=== PATIENT | female | born 1935 | race Caucasian/White ===

== ENCOUNTER → 2017-01-25 | Outpatient (CLI) | payer MEDICARE, OTHER ==
--- NOTE | 2017-01-28 13:10 | MM ---
Reason for exam: screening (asymptomatic). Last mammogram was performed 1 year ago. History: Patient is postmenopausal and has history of other cancer at age 76. Benign excisional biopsy of the left breast, 2000. Physical Findings: A clinical breast exam by your physician is recommended on an annual basis and results should be correlated with mammographic findings. MG 3D Screening Mammo W/Cad Bilateral CC, MLO, and XCCL view(s) were taken. Prior study comparison: January 18, 2016, bilateral MG 3d screening mammo w/cad. January 13, 2015, mammogram, performed at [place]. The breast tissue is heterogeneously dense. This may lower the sensitivity of mammography. No significant changes when compared with prior studies. ASSESSMENT: Benign, BI-RAD 2 RECOMMENDATION: Routine screening mammogram of both breasts in 1 year.
== END | disposition home or self-care (01) ==
LOC: RADMAMWWP 15:52
PROVIDERS: ATTEND Family Medicine
DX: Z12.31 Encounter for screening mammogram for malignant neoplasm of breast (principal)
CPT/HCPCS: 77063; G0202

== ENCOUNTER 2017-03-06 03:53 | Inpatient (IN) | payer MEDICARE, OTHER ==
--- NOTE | 2017-03-06 04:04 | ED ---
General Adult HPI - General Chief complaint: Chest Pain Stated complaint: chest pain Time Seen by Provider: 03/06/17 03:57 Source: EMS, RN notes reviewed, old records reviewed Mode of arrival: EMS Limitations: no limitations - History of Present Illness Initial comments: This is an 81-year-old female ER for evaluation - Related Data Home Medications Medication Instructions Recorded Confirmed A Thru Z Advanced Formula 1 tab PO DAILY 06/18/16 06/18/16 Furosemide [Lasix] 20 mg PO DAILY 06/18/16 06/18/16 Liraglutide [Victoza 3-Sae] 1.8 mg SQ DAILY 06/18/16 06/18/16 Tolterodine ER [Detrol LA] 4 mg PO DAILY 06/18/16 06/18/16 Triamcinolone 0.1% Cream [Kenalog] 1 applicatio TOPICAL BID 06/18/16 06/18/16 Previous Rx's Medication Instructions Recorded Aspirin 325 mg PO DAILY #30 tab 06/21/16 Atorvastatin [Lipitor] 40 mg PO HS #30 tab 06/21/16 Clopidogrel [Plavix] 75 mg PO DAILY #30 tab 06/21/16 Metoprolol Tartrate [Lopressor] 25 mg PO BID #60 tab 06/21/16 Nitroglycerin Sl Tabs [Nitrostat] 0.4 mg SUBLINGUAL Q5M PRN #25 tab 06/21/16 Allergies Allergy/AdvReac Type Severity Reaction Status Date / Time No Known Allergies Allergy Verified 06/18/16 06:23 Review of Systems ROS Statement: Those systems with pertinent positive or pertinent negative responses have been documented in the HPI. ROS Other: All systems not noted in ROS Statement are negative. Past Medical History Past Medical History: Cancer, Diabetes Mellitus, Hypertension Additional Past Medical History / Comment(s): NIDDM type II, pulmonary htn, UTI' s, osteopenia, herron injury as a child, rectal bleed yrs ago, back pain at times, uterine cancer with surgery and radiation 5 yrs ago. History of Any Multi-Drug Resistant Organisms: None Reported Past Surgical History: Appendectomy, Cholecystectomy, Hysterectomy, Joint Replacement Additional Past Surgical History / Comment(s): total hysterectomy with 26 lymph nodes removed, L total knee arthroplasty, L breast bx-benign, colonoscopy-normal , bilateral eyelid surgery, bilateral cataract removal with lens implants. Additional Past Anesthesia/Blood Transfusion Reaction / Comment(s): Pt states seh has received blood in the past without reaction. Past Psychological History: No Psychological Hx Reported Additional Psychological History / Comment(s): Pt resides with her spouse of 56yrs. She has a cane which she uses at times. She drives. Pt states she has depression and it has been increased the past weeks but denies being suicidal, denies any suicidal thoughts. Smoking Status: Never smoker Past Alcohol Use History: None Reported Past Drug Use History: None Reported - Past Family History Mother Family Medical History: No Reported History Additional Family Medical History / Comment(s): Mother was healthy. She at the age of 78yrs. Father Family Medical History: CVA/TIA Additional Family Medical History / Comment(s): Father had heart problems and had TIA's. He also had mental issues. He at the age of 72 yrs. General Exam Limitations: no limitations General appearance: alert, in no apparent distress Head exam: Present: atraumatic, normocephalic, normal inspection Eye exam: Present: normal appearance, PERRL, EOMI. Absent: scleral icterus, conjunctival injection, periorbital swelling ENT exam: Present: normal exam, mucous membranes moist Neck exam: Present: normal inspection. Absent: tenderness, meningismus, lymphadenopathy Respiratory exam: Present: normal lung sounds bilaterally. Absent: respiratory distress, wheezes, rales, rhonchi, stridor Cardiovascular Exam: Present: regular rate, normal rhythm, normal heart sounds. Absent: systolic murmur, diastolic murmur, rubs, gallop, clicks GI/Abdominal exam: Present: soft, normal bowel sounds. Absent: distended, tenderness, guarding, rebound, rigid Extremities exam: Present: normal inspection, full ROM, normal capillary refill. Absent: tenderness, pedal edema, joint swelling, calf tenderness Back exam: Present: normal inspection Neurological exam: Present: alert, oriented X3, CN II-XII intact Psychiatric exam: Present: normal affect, normal mood Skin exam: Present: warm, dry, intact, normal color. Absent: rash Course Vital Signs 03/06/17 03/06/17 03/06/17 03:55 04:40 05:52 Temperature 98.5 F 98.8 F Pulse Rate 88 85 78 Respiratory 16 18 18 Rate Blood Pressure 126/60 125/60 125/62 O2 Sat by Pulse 96 98 98 Oximetry - Reevaluation(s) Reevaluation #1: 03/06/17 06:27 pt w no chest pain EKG Findings - EKG Comments: EKG Findings:: EKG shows normal sinus rhythm rate of 87, FL 182, QRS 130, QTC 486 Medical Decision Making - Medical Decision Making 81 female to the ED co weakness and chest pain, here with chest pain and found to be profoundlt anemic, patient will be admitted for blood transfusion cardiac observation - Lab Data Result diagrams: 03/06/17 04:05 03/06/17 04:05 - Radiology Data Radiology results: report reviewed (CXR is negative for acute disease), image reviewed Critical Care Time Critical Care Time: Yes Total Critical Care Time: 31 Disposition Clinical Impression: Chest pain, Anemia Disposition: ADMITTED IP TO THIS HOSP Condition: Fair
[2017-03-06] MEDS ORDERED: NITROGLYCERIN SL TABS 0.4 MG TAB SUBLINGUAL PRN (04:05)
[2017-03-06] MEDS ORDERED: MORPHINE SULFATE 4 MG/ML SYRINGE IV PRN (04:05)
[2017-03-06] MEDS ORDERED: ASPIRIN 81 MG CHEW PO STA (04:05)
[2017-03-06 04:16] LABS: Anisocytosis Marked; Aty Lym Flag Moderate; CHCM 31.4; HCT 21.3 % (34.0-46.0); HDW 4.72; Hypochromasia Marked; Large Platelets Flag Moderate; MCHC 30.6 g/dL (31.0-37.0); MCV 104.4 fL (80.0-100.0); Macrocytosis Marked; Mean Platelet Volume 12.6; Poikilocytosis Marked; RBC 2.04 m/uL (3.80-5.40); RDW 24.7 % (11.5-15.5); WBC (Perox) 3.35
[2017-03-06 04:24] LABS: INR 1.1 (<1.1); Prothrombin Time 11.4 sec (9.0-12.0)
[2017-03-06 04:29] LABS: HGB 6.5 gm/dL (11.4-16.0)
[2017-03-06 04:30] LABS: ALT 28 U/L (9-52); AST 17 U/L (14-36); Alkaline Phosphatase 65 U/L (38-126); Anion Gap 7 mmol/L; Blood Urea Nitrogen 11 mg/dL (7-17); Calcium 7.4 mg/dL (8.4-10.2); Carbon Dioxide 22 mmol/L (22-30); Chloride 111 mmol/L (98-107); Glucose 103 mg/dL (74-99); Magnesium 1.6 mg/dL (1.6-2.3); Non-African American GFR(MDRD) >60 (>60 ml/min/1.73 sqM); Potassium 3.3 mmol/L (3.5-5.1); Sodium 140 mmol/L (137-145); Total Bilirubin 1.9 mg/dL (0.2-1.3); Total Protein 5.3 g/dL (6.3-8.2)
[2017-03-06] MEDS ORDERED: POTASSIUM BICARB-CITRIC ACID 25 MEQ TABLET.EFF PO STA (04:36)
--- NOTE | 2017-03-06 04:46 | XR ---
EXAM: XR Chest, 2 Views CLINICAL HISTORY: Reason: Chest Pain TECHNIQUE: Frontal and lateral views of the chest. COMPARISON: Chest radiograph on 06/20/2016 FINDINGS: Hardware: Interval placement of a right sided Port-A-Cath terminates in the region of the SVC. Lungs/pleura: Mildly low lung volumes. Prominence of the pulmonary vasculature, increased compared to prior exam on 06/20/2016. No focal consolidation. No pleural effusion or pneumothorax. Heart/mediastinum: Stable mild cardiomegaly. Soft tissues: Unremarkable. Bones: No acute fracture. Degenerative changes of the acromioclavicular joints. IMPRESSION: Mildly low lung volumes with pulmonary vasculature congestion. No significant pleural effusion. Interval placement of a right-sided Port-A-Cath which terminates in the region of the SVC.
[2017-03-06 04:47] LABS: Add Differential Manual Differential
[2017-03-06 04:52] LABS: Creatine Kinase <20 U/L (30-135)
[2017-03-06 04:53] LABS: Total Cells Counted 200
[2017-03-06 04:55] LABS: Manual Review Performed; Polychromasia Present
[2017-03-06 05:03] LABS: Creatine Kinase MB 0.8 ng/mL (0.0-2.4); Troponin I <0.012 ng/mL (0.000-0.034)
[2017-03-06 06:12] LABS: Glucose,Whole Blood 137 mg/dL (75-99)
[2017-03-06 06:21] VITALS: BMI 28.2
[2017-03-06 07:36] LABS: Glucose,Whole Blood 125 mg/dL (75-99)
[2017-03-06 07:44] LABS: Metamyelocytes % 0.5 %; Nucleated Red Blood Cells 5 /100 WBC (0-0)
[2017-03-06 07:46] LABS: Large Platelets Present
--- NOTE | 2017-03-06 09:56 | P.CRDCN ---
History of Present Illness Consult date: 03/06/17 Chief complaint: Chest discomfort History of present illness: This is a pleasant 81-year-old female patient who sees Dr. KM Caban on regular basis with a past medical history significant for coronary artery disease and status post a stenting of the right coronary artery using a drug- eluting stent in May 2016 as well as residual intermediate disease involving the LAD presented to the hospital complaining of chest discomfort. As a matter of fact the patient was brought to the hospital by ambulance. She was in her usual state of health until early this morning when she woke up from sleep complaining of chest discomfort as a pressure across the chest without any radiation to the arm or neck or shoulders and without any associated symptoms. Ambulance was called and the patient was given nitroglycerin with improvement in the symptoms and she was brought to the hospital. The EKG showed sinus rhythm without any significant changes. The patient had only one set of cardiac enzyme came in to be unremarkable. Please note that the patient hemoglobin in the hospital was 6.5. She stated that she has been diagnosed with anemia lately and she has been followed by a lead net software developer at [facility]. She is refusing any blood transfusion at this point. The patient chest discomfort is likely to be angina secondary to CVA anemia. Unfortunately we have to restart the patient back on dual antiplatelet therapy because she underwent a drug-eluting stent less than a year ago. Past Medical History Past Medical History: Cancer, Diabetes Mellitus, Hypertension Additional Past Medical History / Comment(s): NIDDM type II, pulmonary htn, UTI' s, osteopenia, herron injury as a child, rectal bleed yrs ago, back pain at times, uterine cancer with surgery and radiation 5 yrs ago. History of Any Multi-Drug Resistant Organisms: None Reported Past Surgical History: Appendectomy, Cholecystectomy, Hysterectomy, Joint Replacement Additional Past Surgical History / Comment(s): total hysterectomy with 26 lymph nodes removed, L total knee arthroplasty, L breast bx-benign, colonoscopy-normal , bilateral eyelid surgery, bilateral cataract removal with lens implants. Past Anesthesia/Blood Transfusion Reactions: No Reported Reaction Additional Past Anesthesia/Blood Transfusion Reaction / Comment(s): Pt states seh has received blood in the past without reaction. Past Psychological History: No Psychological Hx Reported Additional Psychological History / Comment(s): Pt resides with her spouse of 56yrs. She has a cane which she uses at times. She drives. Pt states she has depression and it has been increased the past weeks but denies being suicidal, denies any suicidal thoughts. Smoking Status: Never smoker Past Alcohol Use History: None Reported Past Drug Use History: None Reported - Past Family History Mother Family Medical History: No Reported History Additional Family Medical History / Comment(s): Mother was healthy. She at the age of 78yrs. Father Family Medical History: CVA/TIA Additional Family Medical History / Comment(s): Father had heart problems and had TIA's. He also had mental issues. He at the age of 72 yrs. Medications and Allergies Home Medications Medication Instructions Recorded Confirmed Type Tolterodine ER [Detrol LA] 4 mg PO DAILY 06/18/16 03/06/17 History Triamcinolone 0.1% Cream [Kenalog] 1 applicatio TOPICAL BID 06/18/16 03/06/17 History amLODIPine BESYLATE/BENAZEPRIL 1 cap PO DAILY 03/06/17 03/06/17 History [Amlodipine-Benazepril 10-20 mg] Allergies Allergy/AdvReac Type Severity Reaction Status Date / Time No Known Allergies Allergy Verified 03/06/17 08:03 Physical Exam Vitals: Vital Signs Temp Pulse Resp BP Pulse Ox 03/06/17 05:52 98.8 F 78 18 125/62 98 03/06/17 04:40 85 18 125/60 98 Intake and Output 03/05/17 03/06/17 03/06/17 22:59 06:59 14:59 Other: Voiding Method Toilet # Voids 1 Weight 74.6 kg - Constitutional General appearance: no acute distress - Respiratory Respiratory: bilateral: CTA - Cardiovascular Rhythm: regular Heart sounds: normal: S1, S2 Abnormal Heart Sounds: systolic murmur Results 03/06/17 04:05 03/06/17 04:05 Current Medications Generic Name Dose Route Start Last Admin Trade Name Freq PRN Reason Stop Dose Admin Amlodipine Besylate 10 mg 03/06/17 10:00 Norvasc PO DAILY [facility] Aspirin 325 mg 03/07/17 09:00 Aspirin PO DAILY [facility] Atorvastatin Calcium 40 mg 03/06/17 21:00 Lipitor PO HS [facility] Clopidogrel Bisulfate 75 mg 03/06/17 10:00 Plavix PO DAILY [facility] Metoprolol Tartrate 25 mg 03/06/17 10:00 Lopressor PO BID [facility] Morphine Sulfate 4 mg 03/06/17 04:05 Morphine Sulfate (Inj) IV Q4HR PRN Chest Pain Nitroglycerin 0.4 mg 03/06/17 04:05 Nitrostat SUBLINGUAL Q5M PRN Chest Pain Triamcinolone Acetonide 1 applic 03/06/17 10:00 Kenalog TOPICAL BID [facility] Intake and Output 03/05/17 03/06/17 03/06/17 22:59 06:59 14:59 Other: Voiding Method Toilet # Voids 1 Weight 74.6 kg Assessment and Plan Plan: Assessment #1 chest discomfort likely to be angina #2 known CAD as described above #3 severe anemia with a hemoglobin of 6.5. Plan #1 restart the patient back on dual antiplatelet therapy #2 blood transfusion if the patient agreed to #3 follow-up with the patient excelled number #4 follow-up with serial cardiac enzymes
[2017-03-06] MEDS: CLOPIDOGREL 75 MG TAB PO SCH (10:24)
[2017-03-06] MEDS: METOPROLOL TARTRATE 25 MG TAB PO SCH ×2 (10:24→21:01)
[2017-03-06] MEDS: TRIAMCINOLONE 0.1% CREAM 80 GM TUBE TOPICAL SCH ×2 (10:25→21:02)
[2017-03-06] MEDS: amLODIPine 10 MG TAB PO SCH (10:25)
[2017-03-06 11:13] LABS: Creatine Kinase 24 U/L (30-135)
[2017-03-06 11:26] LABS: Creatine Kinase MB 0.6 ng/mL (0.0-2.4); Troponin I <0.012 ng/mL (0.000-0.034)
[2017-03-06 12:10] LABS: Glucose,Whole Blood 158 mg/dL (75-99)
[2017-03-06 17:18] LABS: Glucose,Whole Blood 89 mg/dL (75-99)
--- NOTE | 2017-03-06 19:55 | HP ---
DATE OF ADMISSION: 03/06/2017 PRESENTING COMPLAINT: Chest pain. HISTORY OF PRESENTING COMPLAINT: This is a very pleasant 81-year-old patient of Dr. Boyce whose chronic stable medical conditions include diabetes, hypertension, pulmonary hypertension. Patient was resting at night when she developed chest pressure going across, some shortness of breath, radiation to the shoulder. It lasted for a good half an hour. Admitted for the same. Patient also has got a condition, she says, in which her body is not able to make enough red blood cells and she gets a hormone shot every so often; has had blood transfusions x5. Patient was found to have a hemoglobin of 6.5 in the ER, but patient ( ) transfusion. Cardiology was consulted. REVIEW OF SYSTEMS: CONSTITUTIONAL: Tired. HEENT: None. RESPIRATORY: As above. CARDIOVASCULAR: As above. GASTROINTESTINAL: None. GENITOURINARY: None. MUSCULOSKELETAL: None. DERMATOLOGICAL: None. HEMATOLOGICAL: None. LYMPHATIC: None. PSYCHIATRY: None. NEUROLOGICAL: None. PAST MEDICAL HISTORY: 1. Diabetes. 2. Hypertension. 3. Pulmonary hypertension. 4. Uterine cancer treated with surgery and radiation treatment. PAST SURGICAL HISTORY: 1. Appendectomy. 2. Cholecystectomy. 3. Total hysterectomy with 26 lymph nodes removed. 4. Left total knee arthroplasty. 5. Left breast biopsy, benign. 6. Bilateral eyelid surgery. 7. Bilateral cataract removal with lens implants. SOCIAL HISTORY: Patient is . Does drive about. No smoking. No alcohol. FAMILY HISTORY: Reviewed; noncontributory to presentation. HOME MEDICATIONS: 1. Amlodipine/benazepril 10/20 one tablet p.o. daily. 2. Kenalog 0.1% cream topically b.i.d. 3. Detrol LA 4 mg p.o. daily. 4. Nitrostat 0.4 sublingually q.5 p.r.n. 5. Lopressor 25 p.o. b.i.d. 6. Plavix 75 p.o. daily. 7. Lipitor 40 mg at bedtime. 8. Aspirin 325 mg p.o. daily. ALLERGIES: NONE. On examination, temperature 98.4, pulse 82, respiration 16, blood pressure 120/67, pulse ox 98% on room air. GENERAL APPEARANCE: Average build. Lying in bed. Not in distress. EYES: Pupils equal. Conjunctivae pale. HEENT: External appearance of nose and ears normal. Oral cavity normal. NECK: JVD not raised. Mass not palpable. RESPIRATORY: Effort normal. LUNGS: Fair air entry. CARDIOVASCULAR: First and second sounds normal. No edema. ABDOMEN: Soft, nontender. Liver and spleen not palpable. LYMPHATIC: No lymph node palpable in neck or axillae. PSYCHIATRY: Alert and oriented x3. Mood and affect normal. NEUROLOGICAL: Pupils equal. Cranial nerves grossly intact. Power and sensation grossly intact. INVESTIGATIONS: Admission labs show white count 3, hemoglobin 6.5; potassium 3.3. BUN and creatinine are normal. Accu-Cheks are noted: 103, 137, 125. EKG shows right bundle branch block. ASSESSMENT: 1. Unstable angina in a patient with type II hemodynamic mismatch, hemoglobin of 6.5 causing angina at rest/unstable angina. 2. Essential hypertension. 3. Secondary pulmonary hypertension. 4. Chronic anemia with no acute presentation. PLAN: Patient's troponins are negative. Cardiology was consulted. I did speak at length with the patient about the importance of getting some blood transfusion, as this could compromise her situation and may culminate actually in a heart attack. Patient agreed to go ahead and take a unit of blood. Patient's other home medications are reviewed. Will repeat hemoglobin in the morning.
[2017-03-06] MEDS ORDERED: ATORVASTATIN 40 MG TAB PO SCH (21:00)
[2017-03-07 05:09] LABS: Anion Gap 5 mmol/L; Blood Urea Nitrogen 10 mg/dL (7-17); Calcium 7.7 mg/dL (8.4-10.2); Carbon Dioxide 24 mmol/L (22-30); Chloride 110 mmol/L (98-107); Glucose 104 mg/dL (74-99); Magnesium 1.8 mg/dL (1.6-2.3); Non-African American GFR(MDRD) >60 (>60 ml/min/1.73 sqM); Phosphorous 3.6 mg/dL (2.5-4.5); Sodium 139 mmol/L (137-145)
[2017-03-07 05:10] LABS: Anisocytosis Marked; Aty Lym Flag Slight; CH 32.4; CHCM 32.6; Cholesterol <50 mg/dL (<200); HCT 25.1 % (34.0-46.0); HDL Cholesterol 19 mg/dL (40-60); HDW 5.32; HGB 7.9 gm/dL (11.4-16.0); Hypochromasia Marked; Large Platelets Flag Moderate; MCH 32.1 pg (25.0-35.0); MCHC 31.4 g/dL (31.0-37.0); MCV 102.1 fL (80.0-100.0); Macrocytosis Marked; Poikilocytosis Marked; RBC 2.46 m/uL (3.80-5.40); RDW 24.7 % (11.5-15.5); Triglycerides 119 mg/dL (<150)
[2017-03-07 05:19] LABS: Add Differential Manual Differential
[2017-03-07 05:28] LABS: Band Neutrophils % 2.5 %; Metamyelocytes % 1.5 %; Myelocytes % 2.5 %; Nucleated Red Blood Cells 7 /100 WBC (0-0); Total Cells Counted 200; WBC 2.7 k/uL (3.8-10.6)
[2017-03-07 05:29] LABS: Large Platelets Present; Manual Review Performed; Polychromasia Present
[2017-03-07 08:08] VITALS: BP 127/67; RESP 15; TEMP 98.1
[2017-03-07] MEDS ORDERED: ASPIRIN 325 MG TAB PO SCH (09:00)
[2017-03-07] MEDS: METOPROLOL TARTRATE 25 MG TAB PO SCH (09:15)
[2017-03-07] MEDS: CLOPIDOGREL 75 MG TAB PO SCH (09:15)
[2017-03-07] MEDS: amLODIPine 10 MG TAB PO SCH (09:16)
[2017-03-07] MEDS: TRIAMCINOLONE 0.1% CREAM 80 GM TUBE TOPICAL SCH (09:16)
--- NOTE | 2017-03-07 11:42 | P.PN ---
Progress Note - Text This is a pleasant 81-year-old female patient who sees Dr. KM Caban on regular basis with a past medical history significant for coronary artery disease and status post a stenting of the right coronary artery using a drug- eluting stent in May 2016 as well as residual intermediate disease involving the LAD presented to the hospital complaining of chest discomfort. As a matter of fact the patient was brought to the hospital by ambulance. She was in her usual state of health until early this morning when she woke up from sleep complaining of chest discomfort as a pressure across the chest without any radiation to the arm or neck or shoulders and without any associated symptoms. Ambulance was called and the patient was given nitroglycerin with improvement in the symptoms and she was brought to the hospital. The EKG showed sinus rhythm without any significant changes. The patient had only one set of cardiac enzyme came in to be unremarkable. Please note that the patient hemoglobin in the hospital was 6.5. She stated that she has been diagnosed with anemia lately and she has been followed by a marble cleaner at [facility]. The patient received blood with improvement in her symptoms. She is going to be discharged home and she will follow-up with her primary care physician.
[2017-03-07 12:07] VITALS: PULSE 74
--- NOTE | 2017-03-08 10:22 | DS ---
DATE OF ADMISSION: 03/06/2017 DATE OF DISCHARGE: 03/07/2017 FINAL DIAGNOSES: 1. Unstable angina in a patient with the type II hemodynamic mismatch with underlying coronary artery disease. 2. Essential hypertension. 3. Secondary pulmonary hypertension. 4. 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 5. Coronary artery disease, prior history drug-eluting stent in May of 2016 with residual intermittent disease of the left anterior descending artery. CONSULTATION: Cardiology, Dr. Isabel. HOSPITAL COURSE: This patient presented with cardiac-sounding presentation, hemoglobin was 6.5, given a unit of blood, went up to 7.9. Patient is feeling much better. Patient is due to see her traveling construction superintendent. Patient was symptom-free symptom with transfusion. On examination, lungs are clear. CARDIOVASCULAR: First and second sounds are normal. DISCHARGE MEDICATIONS: 1. Detrol LA 4 mg p.o. daily. 2. Kenalog 0.1% cream topically b.i.d. 3. Aspirin 325 p.o. daily. 4. Lipitor 40 mg q.h.s. 5. Plavix 75 p.o. daily. 6. Lopressor 25 p.o. b.i.d. 7. Nitrostat 0.4 sublingual q.5 p.r.n. Follow up with Dr. Boyce on 03/08/2017; follow up with her traveling construction superintendent and her plastic parts designer as soon as possible.
== END 2017-03-07 12:12 | disposition home health service (06) | DRG 815 ==
LOC: EC 03:53 → UNDOADMOB 04:05 → 3OBS 04:05 → 6ICU 04:05
PROVIDERS: ADMIT Hospitalist; ATTEND Hospitalist
PROC: 30233N1 Transfusion of Nonautologous Red Blood Cells into Peripheral Vein, Percutaneous Approach (ICD-10-PCS; principal; 2017-03-06)
DX: D75.89 Other specified diseases of blood and blood-forming organs (principal); I25.110 Atherosclerotic heart disease of native coronary artery with unstable angina pectoris; I27.2 Other secondary pulmonary hypertension; E11.9 Type 2 diabetes mellitus without complications; D63.8 Anemia in other chronic diseases classified elsewhere; I10 Essential (primary) hypertension; F32.9 Major depressive disorder, single episode, unspecified; M85.80 Other specified disorders of bone density and structure, unspecified site; Z79.02 Long term (current) use of antithrombotics/antiplatelets; Z79.82 Long term (current) use of aspirin; Z79.899 Other long term (current) drug therapy; Z85.42 Personal history of malignant neoplasm of other parts of uterus; Z96.652 Presence of left artificial knee joint
CPT/HCPCS: 36415; 71020; 80048; 80053; 80061; 82550; 82553; 83735; 84100; 84484; 85025; 85610; 85730; 86850; 86900; 86901; 86920; 93005; 99291

== ENCOUNTER 2017-04-23 07:05 | Emergency (ER) | payer MEDICARE, OTHER ==
[2017-04-23 07:12] VITALS: RESP 16
[2017-04-23] MEDS ORDERED: SODIUM CHLORIDE 0.9% 1,000 ML IV STA ×2 (07:45)
[2017-04-23] MEDS ORDERED: KETOROLAC 30 MG/ML 1 ML VIAL IVP STA (07:46)
--- NOTE | 2017-04-23 07:50 | ED ---
Weakness HPI - General Chief complaint: Weakness Stated complaint: Pain Time Seen by Provider: 04/23/17 07:05 Source: patient, family, EMS, RN notes reviewed Mode of arrival: EMS Limitations: no limitations - History of Present Illness Initial comments: This is an 81-year-old female with a history of hypertension who is also on Plavix who presents by EMS today because of generalized weakness. She apparently was visiting a chair since Saturday today being Saturday (4 days) who also complains of severe shoulder pain. She states that [place] she states it feels Lasix obesity and her chest at times shoulders. She has a cough fevers chills nausea vomiting sweats no dysuria she does states she feels like the taste water has not been drinking. She does drink Pepsi and alcohol murmurs. She states she's had decreased urine output over collar is not different. She has no focal weakness she does states she hurts all over. She did slide out of bed yesterday. He denies any overt injury from this. MD Complaint: generalized weakness - Related Data Home Medications Medication Instructions Recorded Confirmed Tolterodine ER [Detrol LA] 4 mg PO DAILY 06/18/16 04/23/17 Triamcinolone 0.1% Cream [Kenalog] 1 applicatio TOPICAL BID PRN 06/18/16 Previous Rx's Medication Instructions Recorded Aspirin 325 mg PO DAILY #30 tab 06/21/16 Atorvastatin [Lipitor] 40 mg PO HS #30 tab 06/21/16 Clopidogrel [Plavix] 75 mg PO DAILY #30 tab 06/21/16 Metoprolol Tartrate [Lopressor] 25 mg PO BID #60 tab 06/21/16 Nitroglycerin Sl Tabs [Nitrostat] 0.4 mg SUBLINGUAL Q5M PRN #25 tab 06/21/16 Amoxicillin/Potassium Clav 1 tab PO Q12HR #20 tab 04/23/17 [Augmentin 875-125 Tablet] Allergies Allergy/AdvReac Type Severity Reaction Status Date / Time No Known Allergies Allergy Verified 04/23/17 07:46 Review of Systems ROS Statement: Those systems with pertinent positive or pertinent negative responses have been documented in the HPI. ROS Other: All systems not noted in ROS Statement are negative. Past Medical History Past Medical History: Cancer, Diabetes Mellitus, Hypertension Additional Past Medical History / Comment(s): NIDDM type II, pulmonary htn, UTI' s, osteopenia, herron injury as a child, rectal bleed yrs ago, back pain at times, uterine cancer with surgery and radiation 5 yrs ago. History of Any Multi-Drug Resistant Organisms: None Reported Past Surgical History: Appendectomy, Cholecystectomy, Hysterectomy, Joint Replacement Additional Past Surgical History / Comment(s): total hysterectomy with 26 lymph nodes removed, L total knee arthroplasty, L breast bx-benign, colonoscopy-normal , bilateral eyelid surgery, bilateral cataract removal with lens implants. Past Anesthesia/Blood Transfusion Reactions: No Reported Reaction Additional Past Anesthesia/Blood Transfusion Reaction / Comment(s): Pt states seh has received blood in the past without reaction. Past Psychological History: No Psychological Hx Reported Smoking Status: Never smoker Past Alcohol Use History: None Reported Past Drug Use History: None Reported - Past Family History Mother Family Medical History: No Reported History Additional Family Medical History / Comment(s): Mother was healthy. She at the age of 78yrs. Father Family Medical History: CVA/TIA Additional Family Medical History / Comment(s): Father had heart problems and had TIA's. He also had mental issues. He at the age of 72 yrs. General Exam - General Exam Comments Initial Comments: This is a well-developed well-nourished awake alert oriented x 3 female Limitations: no limitations General appearance: alert, in no apparent distress Head exam: Present: atraumatic, normocephalic, normal inspection Eye exam: Present: normal appearance, PERRL, EOMI. Absent: scleral icterus, conjunctival injection, periorbital swelling ENT exam: Present: mucous membranes dry Neck exam: Present: normal inspection, tenderness (Tenderness palpation of the paraspinous muscles at the bilateral trapezius muscles no spinous process tenderness or step-off or crepitation no meningeal signs). Absent: meningismus , lymphadenopathy Respiratory exam: Present: normal lung sounds bilaterally. Absent: respiratory distress, wheezes, rales, rhonchi, stridor Cardiovascular Exam: Present: regular rate, normal rhythm, normal heart sounds. Absent: systolic murmur, diastolic murmur, rubs, gallop, clicks GI/Abdominal exam: Present: soft, normal bowel sounds. Absent: distended, tenderness, guarding, rebound, rigid Extremities exam: Present: normal inspection, full ROM, normal capillary refill. Absent: tenderness, pedal edema, joint swelling, calf tenderness Back exam: Present: normal inspection Neurological exam: Present: alert, oriented X3, CN II-XII intact Psychiatric exam: Present: normal mood, flat affect Skin exam: Present: warm, dry, intact, normal color. Absent: rash Course Vital Signs 04/23/17 04/23/17 04/23/17 07:09 07:42 08:42 Temperature 100.1 F H Pulse Rate 91 88 88 Respiratory 16 Rate Blood Pressure 129/58 132/58 119/55 O2 Sat by Pulse 94 L 96 94 L Oximetry 04/23/17 04/23/17 09:12 10:36 Temperature 99.1 F Pulse Rate 90 91 Respiratory 16 Rate Blood Pressure 100/62 113/52 O2 Sat by Pulse 95 94 L Oximetry EKG Findings - EKG Results: EKG: interpreted by JC, sinus rhythm (Sinus rhythm rate of 88 AR interval 170 QRS 132 QT since QTC of 14/46 that exodeviation right bundle-branch block no changes seen with compared to EKG dated 03/06/17) Medical Decision Making - Medical Decision Making The patient is feeling much improved at this time and would like to go home and did discuss case with patient family and was office staff members. Visiting nurse will come to see the patient tomorrow brian follow-up with Dr. Boyce. Visual be placed on antibiotics there is evidence of atelectasis on the CAT scan inability to blood cell count is within normal limits there is suspicion of early pneumonitis. Patient is return if any problems. - Lab Data Result diagrams: 04/23/17 08:05 04/23/17 08:05 Lab Results 04/23/17 04/23/17 04/23/17 Range/Units 08:05 08:05 08:05 WBC 3.9 (3.8-10.6) k/uL RBC 2.57 L (3.80-5.40) m/uL Hgb 8.2 L (11.4-16.0) gm/dL Hct 26.5 L (34.0-46.0) % MCV 103.0 H (80.0-100.0) fL MCH 32.0 (25.0-35.0) pg MCHC 31.1 (31.0-37.0) g/dL RDW 20.3 H (11.5-15.5) % Plt Count 102 L (150-450) k/uL Neutrophils % (Manual) 60.5 % Lymphocytes % (Manual) 28.0 % Monocytes % (Manual) 9.0 % Blast Cells % 2.5 Neutrophils # (Manual) 2.4 (1.3-7.7) k/uL Lymphocytes # (Manual) 1.1 (1.0-4.8) k/uL Monocytes # (Manual) 0.4 (0-1.0) k/uL Nucleated RBCs 0 (0-0) /100 WBC Manual Slide Review Performed Large Platelets Present Polychromasia Present Hypochromasia Moderate Poikilocytosis Moderate Anisocytosis Moderate Macrocytosis Marked Stomatocytes Present PT (9.0-12.0) sec INR (<1.1) APTT (22.0-30.0) sec D-Dimer (<0.60) mg/L FEU Sodium 136 L (137-145) mmol/L Potassium 3.5 (3.5-5.1) mmol/L Chloride 103 (98-107) mmol/L Carbon Dioxide 24 (22-30) mmol/L Anion Gap 9 mmol/L BUN 18 H (7-17) mg/dL Creatinine 0.62 (0.52-1.04) mg/dL Est GFR (MDRD) Af Amer >60 (>60 ml/min/1.73 sqM) Est GFR (MDRD) Non-Af >60 (>60 ml/min/1.73 sqM) Glucose 271 H (74-99) mg/dL Plasma Lactic Acid Eddie (0.7-2.0) mmol/L Calcium 8.1 L (8.4-10.2) mg/dL Magnesium 1.7 (1.6-2.3) mg/dL Total Bilirubin 2.5 H (0.2-1.3) mg/dL AST 11 L (14-36) U/L ALT 16 (9-52) U/L Alkaline Phosphatase 102 (38-126) U/L Total Creatine Kinase <20 L (30-135) U/L CK-MB (CK-2) <0.2 (0.0-2.4) ng/mL CK-MB (CK-2) Rel Index Troponin I <0.012 (0.000-0.034) ng/mL NT-Pro-B Natriuret Pep pg/mL Total Protein 5.7 L (6.3-8.2) g/dL Albumin 2.8 L (3.5-5.0) g/dL Urine Color Urine Appearance (Clear) Urine pH (5.0-8.0) Ur Specific [place] (1.001-1.035) Urine Protein (Negative) Urine Glucose (UA) (Negative) Urine Ketones (Negative) Urine Blood (Negative) Urine Nitrite (Negative) Urine Bilirubin (Negative) Urine Urobilinogen (<2.0) mg/dL Ur Leukocyte Esterase (Negative) Urine RBC (0-5) /hpf Urine WBC (0-5) /hpf Urine Mucus (None) /hpf 04/23/17 04/23/17 04/23/17 Range/Units 08:05 08:05 08:05 WBC (3.8-10.6) k/uL RBC (3.80-5.40) m/uL Hgb (11.4-16.0) gm/dL Hct (34.0-46.0) % MCV (80.0-100.0) fL MCH (25.0-35.0) pg MCHC (31.0-37.0) g/dL RDW (11.5-15.5) % Plt Count (150-450) k/uL Neutrophils % (Manual) % Lymphocytes % (Manual) % Monocytes % (Manual) % Blast Cells % Neutrophils # (Manual) (1.3-7.7) k/uL Lymphocytes # (Manual) (1.0-4.8) k/uL Monocytes # (Manual) (0-1.0) k/uL Nucleated RBCs (0-0) /100 WBC Manual Slide Review Large Platelets Polychromasia Hypochromasia Poikilocytosis Anisocytosis Macrocytosis Stomatocytes PT 12.1 H (9.0-12.0) sec INR 1.2 (<1.1) APTT 34.6 H (22.0-30.0) sec D-Dimer 1.42 H (<0.60) mg/L FEU Sodium (137-145) mmol/L Potassium (3.5-5.1) mmol/L Chloride (98-107) mmol/L Carbon Dioxide (22-30) mmol/L Anion Gap mmol/L BUN (7-17) mg/dL Creatinine (0.52-1.04) mg/dL Est GFR (MDRD) Af Amer (>60 ml/min/1.73 sqM) Est GFR (MDRD) Non-Af (>60 ml/min/1.73 sqM) Glucose (74-99) mg/dL Plasma Lactic Acid Eddie 0.8 (0.7-2.0) mmol/L Calcium (8.4-10.2) mg/dL Magnesium (1.6-2.3) mg/dL Total Bilirubin (0.2-1.3) mg/dL AST (14-36) U/L ALT (9-52) U/L Alkaline Phosphatase (38-126) U/L Total Creatine Kinase (30-135) U/L CK-MB (CK-2) (0.0-2.4) ng/mL CK-MB (CK-2) Rel Index Troponin I (0.000-0.034) ng/mL NT-Pro-B Natriuret Pep 929 pg/mL Total Protein (6.3-8.2) g/dL Albumin (3.5-5.0) g/dL Urine Color Urine Appearance (Clear) Urine pH (5.0-8.0) Ur Specific [place] (1.001-1.035) Urine Protein (Negative) Urine Glucose (UA) (Negative) Urine Ketones (Negative) Urine Blood (Negative) Urine Nitrite (Negative) Urine Bilirubin (Negative) Urine Urobilinogen (<2.0) mg/dL Ur Leukocyte Esterase (Negative) Urine RBC (0-5) /hpf Urine WBC (0-5) /hpf Urine Mucus (None) /hpf 04/23/17 Range/Units 09:38 WBC (3.8-10.6) k/uL RBC (3.80-5.40) m/uL Hgb (11.4-16.0) gm/dL Hct (34.0-46.0) % MCV (80.0-100.0) fL MCH (25.0-35.0) pg MCHC (31.0-37.0) g/dL RDW (11.5-15.5) % Plt Count (150-450) k/uL Neutrophils % (Manual) % Lymphocytes % (Manual) % Monocytes % (Manual) % Blast Cells % Neutrophils # (Manual) (1.3-7.7) k/uL Lymphocytes # (Manual) (1.0-4.8) k/uL Monocytes # (Manual) (0-1.0) k/uL Nucleated RBCs (0-0) /100 WBC Manual Slide Review Large Platelets Polychromasia Hypochromasia Poikilocytosis Anisocytosis Macrocytosis Stomatocytes PT (9.0-12.0) sec INR (<1.1) APTT (22.0-30.0) sec D-Dimer (<0.60) mg/L FEU Sodium (137-145) mmol/L Potassium (3.5-5.1) mmol/L Chloride (98-107) mmol/L Carbon Dioxide (22-30) mmol/L Anion Gap mmol/L BUN (7-17) mg/dL Creatinine (0.52-1.04) mg/dL Est GFR (MDRD) Af Amer (>60 ml/min/1.73 sqM) Est GFR (MDRD) Non-Af (>60 ml/min/1.73 sqM) Glucose (74-99) mg/dL Plasma Lactic Acid Eddie (0.7-2.0) mmol/L Calcium (8.4-10.2) mg/dL Magnesium (1.6-2.3) mg/dL Total Bilirubin (0.2-1.3) mg/dL AST (14-36) U/L ALT (9-52) U/L Alkaline Phosphatase (38-126) U/L Total Creatine Kinase (30-135) U/L CK-MB (CK-2) (0.0-2.4) ng/mL CK-MB (CK-2) Rel Index Troponin I (0.000-0.034) ng/mL NT-Pro-B Natriuret Pep pg/mL Total Protein (6.3-8.2) g/dL Albumin (3.5-5.0) g/dL Urine Color Yellow Urine Appearance Cloudy H (Clear) Urine pH 5.5 (5.0-8.0) Ur Specific [place] 1.020 (1.001-1.035) Urine Protein 1+ H (Negative) Urine Glucose (UA) 2+ H (Negative) Urine Ketones Negative (Negative) Urine Blood Trace H (Negative) Urine Nitrite Negative (Negative) Urine Bilirubin Negative (Negative) Urine Urobilinogen 2.0 (<2.0) mg/dL Ur Leukocyte Esterase Negative (Negative) Urine RBC 1 (0-5) /hpf Urine WBC <1 (0-5) /hpf Urine Mucus Rare H (None) /hpf - Radiology Data Radiology results: report reviewed (Review the imaging and reports no acute findings. Her some evidence of atelectasis), image reviewed Disposition Clinical Impression: Pneumonitis, Dehydration fever, Weakness, Chronic anemia Disposition: HOME SELF-CARE Condition: Good Instructions: Pneumonitis (ED), Dehydration (ED), Anemia (ED) Prescriptions: Amoxicillin/Potassium Clav [Augmentin 875-125 Tablet] 1 tab PO Q12HR #20 tab Referrals: Marty Boyce MD [Primary Care Provider] - 1-2 days
--- NOTE | 2017-04-23 08:30 | XR ---
EXAMINATION TYPE: XR chest 2V DATE OF EXAM: 04/23/2017 HISTORY: Weakness. REFERENCE: Previous study dated 03/06/2017. FINDINGS: There is a MediPort in place on the right. Its tip is in the superior vena cava. The heart is mildly enlarged. There is scarring or atelectasis at the left lung base. The lungs are o therwise clear. I cannot exclude a small left effusion. IMPRESSION: 1. CARDIOMEGALY. 2. SCARRING VERSUS ATELECTASIS, LEFT LUNG BASE. 3. I CANNOT EXCLUDE A SMALL LEFT EFFUSION.
[2017-04-23 08:31] LABS: Anisocytosis Moderate; Aty Lym Flag Moderate; CH 32.4; CHCM 31.9; HCT 26.5 % (34.0-46.0); HDW 4.05; HGB 8.2 gm/dL (11.4-16.0); Hypochromasia Moderate; Large Platelets Flag Marked; MCHC 31.1 g/dL (31.0-37.0); Macrocytosis Marked; Mean Platelet Volume 14.2; Poikilocytosis Moderate; RBC 2.57 m/uL (3.80-5.40); RDW 20.3 % (11.5-15.5); WBC 3.9 k/uL (3.8-10.6); WBC (Perox) 4.13
[2017-04-23 08:43] LABS: Creatine Kinase <20 U/L (30-135)
[2017-04-23 08:52] LABS: Add Differential Manual Differential; INR 1.2 (<1.1); Partial Thromboplastin Time 34.6 sec (22.0-30.0); Prothrombin Time 12.1 sec (9.0-12.0)
[2017-04-23 08:56] LABS: ALT 16 U/L (9-52); AST 11 U/L (14-36); Alkaline Phosphatase 102 U/L (38-126); Anion Gap 9 mmol/L; Blood Urea Nitrogen 18 mg/dL (7-17); Calcium 8.1 mg/dL (8.4-10.2); Carbon Dioxide 24 mmol/L (22-30); Chloride 103 mmol/L (98-107); Creatine Kinase MB <0.2 ng/mL (0.0-2.4); Glucose 271 mg/dL (74-99); Magnesium 1.7 mg/dL (1.6-2.3); Non-African American GFR(MDRD) >60 (>60 ml/min/1.73 sqM); Potassium 3.5 mmol/L (3.5-5.1); Sodium 136 mmol/L (137-145); Total Bilirubin 2.5 mg/dL (0.2-1.3); Total Protein 5.7 g/dL (6.3-8.2); Troponin I <0.012 ng/mL (0.000-0.034)
[2017-04-23 08:59] LABS: Blast Cells 2.5; Large Platelets Present; Manual Review Performed; Nucleated Red Blood Cells 0 /100 WBC (0-0); Total Cells Counted 200
[2017-04-23 09:00] LABS: Polychromasia Present; Stomatocytes Present
[2017-04-23] MEDS ORDERED: RX INFO: IV CONTRAST WAS GIVEN 1 EACH MISC MISCELLANE PRN (09:43)
[2017-04-23] MEDS ORDERED: HYDROmorphone 1 MG/ML 1 ML SYRINGE IVP STA (09:59)
[2017-04-23 10:11] LABS: Appearance,Urine Cloudy (Clear); Bilirubin,Urine Negative (Negative); Glucose,Urine (UA) 2+ (Negative); Ketones,Urine Negative (Negative); Leukocyte Esterase,Urine Negative (Negative); Mucus,Urine Rare /hpf; Nitrite,Urine Negative (Negative); PH, Urine 5.5 (5.0-8.0); Particle Count 12862; Protein,Urine 1+ (Negative); RBC,Urine 1 /hpf (0-5); UA Billing (MACRO vs. MICRO) MICRO; WBC,Urine <1 /hpf (0-5)
--- NOTE | 2017-04-23 10:38 | CT ---
EXAMINATION TYPE: CT angio chest DATE OF EXAM: 04/23/2017 10:29 AM COMPARISON: Previous study dated 06/18/2016 HISTORY: Patient complains of bilateral shoulder pain and arm weakness. Rule out PE. Patient denies chest pain or difficulty breathing. CT DLP: 224.2 mGycm Automated exposure control for dose reduction was used. CONTRAST: CTA scan of the thorax is performed with IV Contrast, patient injected with 100 mL of Omnipaque 350, pulmonary embolism protocol. . FINDINGS: There are small, bilateral effusions, greater on the right than the left. There is diffuse interstitial change, unchanged from previous. There is atelectasis or early consolidation at the lung bases, greater on the left than the right. No parenchymal nodule is seen. There is no significant axillary, internal mammary or hilar adenopathy. There is some shotty mediasti nal adenopathy. There is no evidence of pulmonary embolus. The heart is enlarged. The aorta is normal in caliber without evidence of dissection. There is a small hiatal hernia visualized portions of the upper abdomen are otherwise unremarkable. There is hypertrophic spondylosis and spondylosis deformans within the spine. There is a Port-A-Cath in place on the right. Its tip is in the right atrium. IMPRESSION: 1. THIS EXAMINATION IS NEGATIVE FOR PULMONARY EMBOLUS. 2. CARDIOMEGALY. 3. SMALL, BILATERAL EFFUSIONS, GREATER ON THE RIGHT THAN THE LEFT. 3. DIFFUSE INTERSTITIAL CHANGE. 4. CONSOLIDATION VERSUS ATELECTASIS AT THE LUNG BASES, GREATER ON THE LEFT THAN THE RIGHT. 5. DEGENERATIVE CHANGES WITHIN THE SPINE. 6. SMALL HIATAL HERNIA.
[2017-04-23 11:53] VITALS: BP 104/51; PULSE 85; TEMP 97.8
== END 2017-04-23 11:53 | disposition home or self-care (01) ==
LOC: EC 07:05
DX: J18.9 Pneumonia, unspecified organism (principal); R53.1 Weakness; E86.0 Dehydration; D64.9 Anemia, unspecified; Z96.652 Presence of left artificial knee joint; Z79.899 Other long term (current) drug therapy
CPT/HCPCS: 36415; 93005; 85379; 83880; 80053; 82550; 82553; 83605; 83735; 84484; 85025; 85610; 85730; 81001; 87040; 71020; 71275; 99285; 96365; 96375 ×2; 96361 ×3; Q9967; J0696; J1885; J1170

== ENCOUNTER 2017-12-19 16:14 | Emergency (ER) | payer MEDICARE, OTHER ==
[2017-12-19] MEDS ORDERED: SODIUM CHLORIDE 0.9% 1,000 ML IV STA ×2 (16:40)
[2017-12-19] MEDS ORDERED: IPRATROPIUM-ALBUTEROL 3 ML NEB INHALATION STA (16:41)
--- NOTE | 2017-12-19 16:47 | ED ---
Weakness HPI - General Chief complaint: Weakness Stated complaint: Weakness Time Seen by Provider: 12/19/17 16:35 Source: patient, EMS Mode of arrival: EMS Limitations: no limitations - History of Present Illness Initial comments: This 82-year-old white female presents with a complaint of weakness. She states that it has been going on for approximately one month. It is been worse recently. She does have a history of anemia and had a hemoglobin of 6.7 yesterday and received 2 units of blood. She states that she is unsure why she is anemic. She denies any blood in her stool or black tarry stools. She does complain of occasional shortness of breath and states that earlier this month she apparently contracted influenza A as well as influenza B. She has had an occasional cough. She denies any chest pain or abdominal pain or fevers or chills. No other modifying factors. Family later does show up and states that she has not regained her appetite and has not been taking in as much fluids since she has been ill over the past month. She also just got over a urinary tract infection a couple of days ago. They also relate that she has myelodysplastic syndrome affecting her blood counts. - Related Data Home Medications Medication Instructions Recorded Confirmed Aspirin EC [Ecotrin Low Dose] 81 mg PO DAILY 12/19/17 12/19/17 Atorvastatin [Lipitor] 20 mg PO DAILY 12/19/17 12/19/17 Dronabinol [Marinol] 2.5 mg PO DAILY 12/19/17 12/19/17 Sertraline [Zoloft] 150 mg PO DAILY 12/19/17 12/19/17 metFORMIN HCL [Glucophage] 500 mg PO BID 12/19/17 12/19/17 Previous Rx's Medication Instructions Recorded Clopidogrel [Plavix] 75 mg PO DAILY #30 tab 06/21/16 Metoprolol Tartrate [Lopressor] 25 mg PO BID #60 tab 06/21/16 Nitroglycerin Sl Tabs [Nitrostat] 0.4 mg SUBLINGUAL Q5M PRN #25 tab 06/21/16 Allergies Allergy/AdvReac Type Severity Reaction Status Date / Time No Known Allergies Allergy Verified 12/19/17 16:27 Review of Systems ROS Statement: Those systems with pertinent positive or pertinent negative responses have been documented in the HPI. ROS Other: All systems not noted in ROS Statement are negative. Past Medical History Past Medical History: Cancer, Diabetes Mellitus, Hypertension Additional Past Medical History / Comment(s): NIDDM type II, pulmonary htn, UTI' s, osteopenia, herron injury as a child, rectal bleed yrs ago, back pain at times, uterine cancer with surgery and radiation 5 yrs ago. History of Any Multi-Drug Resistant Organisms: None Reported Past Surgical History: Appendectomy, Cholecystectomy, Hysterectomy, Joint Replacement Additional Past Surgical History / Comment(s): total hysterectomy with 26 lymph nodes removed, L total knee arthroplasty, L breast bx-benign, colonoscopy-normal , bilateral eyelid surgery, bilateral cataract removal with lens implants. Past Anesthesia/Blood Transfusion Reactions: No Reported Reaction Additional Past Anesthesia/Blood Transfusion Reaction / Comment(s): Pt states seh has received blood in the past without reaction. Past Psychological History: No Psychological Hx Reported Smoking Status: Never smoker Past Alcohol Use History: None Reported Past Drug Use History: None Reported - Past Family History Mother Family Medical History: No Reported History Additional Family Medical History / Comment(s): Mother was healthy. She at the age of 78yrs. Father Family Medical History: CVA/TIA Additional Family Medical History / Comment(s): Father had heart problems and had TIA's. He also had mental issues. He at the age of 72 yrs. General Exam - General Exam Comments Initial Comments: GENERAL: The patient is well nourished and well hydrated. VITAL SIGNS: Heart rate, blood pressure, respiratory rate reviewed as recorded in nurse's notes. EYES: Pupils are round and reactive. Extraocular movements are intact. No conjunctival / lid redness or swelling. ENT: No external evidence of injury, swelling, or ecchymosis. Airway is patent. Throat is clear. NECK: Nontender. No swelling or evidence of injury. No subcutaneous emphysema. Trachea is midline. No thyroid mass. HEART: Regular rate and rhythm. Good peripheral pulses. LUNGS/CHEST: Breath sounds clear and equal bilaterally. No rales, rhonchi, or wheezes. No ecchymosis, subcutaneous emphysema, or tenderness. ABDOMEN: Abdomen soft without tenderness. No palpable masses or organomegaly. No peritoneal signs. No abdominal wall swelling or ecchymosis. EXTREMITIES: No extremity tenderness. Normal muscle tone and function. No thoracolumbar tenderness. NEUROLOGIC: Sensation is grossly intact. Cranial nerve exam reveals face is symmetrical, tongue is midline, speech is clear. SKIN: No abrasions or ecchymosis is noted. No induration or masses noted. Slightly pale appearing. PSYCHIATRIC: Alert and oriented. Appropriate behavior and judgment. Limitations: no limitations Course Vital Signs 12/19/17 12/19/17 12/19/17 16:16 16:40 17:16 Temperature 98.1 F Pulse Rate 102 H 100 Respiratory 16 20 Rate Blood Pressure 100/56 O2 Sat by Pulse 97 Oximetry 12/19/17 12/19/17 12/19/17 17:22 17:56 18:55 Temperature 97.6 F Pulse Rate 100 101 H 97 Respiratory 20 20 Rate Blood Pressure 90/50 101/55 O2 Sat by Pulse 97 97 Oximetry Medical Decision Making - Medical Decision Making The patient was seen and examined. All diagnostics were reviewed. The patient had an EKG done which shows a normal sinus rhythm at a rate of 98 with a right bundle-branch block. There is right bundle-branch block associated ST-T wave changes primarily in the anteroseptal leads. The CT intervals 134, QRS duration is 128, and the QTC intervals 482. The chest x-ray did not show any acute processes. The laboratory does show an anemia with a hemoglobin of 8.1 but this is improved from 6.7 yesterday. She has a mild leukocytosis, mild renal insufficiency and significant thrombocytopenia. Her CO2 is decreased consistent with dehydration. There is no urinary infection. She is hydrated and she feels much improved on recheck. It is felt as though she would benefit from admission to the hospital but the patient and daughter would like her to be discharged home. She states that she feels well enough to be discharged home. She does have people at home to help her as well. Proper hydration is discussed in detail. They are informed of laboratory findings that she should have her late was rechecked early this next week. He should inform their oncologist/household appliances salesperson of the results as well. She leaves in no identifiable distress. - Lab Data Result diagrams: 12/19/17 16:30 12/19/17 16:30 Lab Results 12/19/17 12/19/17 12/19/17 Range/Units 16:30 16:30 16:30 WBC 13.6 H (3.8-10.6) k/uL RBC 2.69 L (3.80-5.40) m/uL Hgb 8.1 L (11.4-16.0) gm/dL Hct 25.9 L (34.0-46.0) % MCV 96.0 (80.0-100.0) fL MCH 30.2 (25.0-35.0) pg MCHC 31.4 (31.0-37.0) g/dL RDW 18.1 H (11.5-15.5) % Plt Count 41 L* (150-450) k/uL Neutrophils % (Manual) 59 % Lymphocytes % (Manual) 23 % Monocytes % (Manual) 12 % Eosinophils % (Manual) 1 % Metamyelocytes % 3 % Promyelocytes % 2 % Blast Cells % 1 % Neutrophils # (Manual) 8.02 H (1.3-7.7) k/uL Lymphocytes # (Manual) 3.13 (1.0-4.8) k/uL Monocytes # (Manual) 1.63 H (0-1.0) k/uL Eosinophils # (Manual) 0.14 (0-0.7) k/uL Metamyelocytes # (Man) 0.41 H (0) k/uL Promyelocytes # (Man) 0.27 H (0) k/uL Blast Cells # (Man) 0.14 H (0) k/uL Nucleated RBCs 0 (0-0) /100 WBC Polychromasia Present Hypochromasia Moderate Poikilocytosis Moderate Anisocytosis Slight Macrocytosis Slight PT (9.0-12.0) sec INR (<1.2) APTT (22.0-30.0) sec Sodium 135 L (137-145) mmol/L Potassium 4.7 (3.5-5.1) mmol/L Chloride 107 (98-107) mmol/L Carbon Dioxide 20 L (22-30) mmol/L Anion Gap 8 mmol/L BUN 34 H (7-17) mg/dL Creatinine 1.09 H (0.52-1.04) mg/dL Est GFR (MDRD) Af Amer 58 (>60 ml/min/1.73 sqM) Est GFR (MDRD) Non-Af 48 (>60 ml/min/1.73 sqM) Glucose 181 H (74-99) mg/dL Plasma Lactic Acid Eddie (0.7-2.0) mmol/L Calcium 7.9 L (8.4-10.2) mg/dL Phosphorus 3.6 (2.5-4.5) mg/dL Magnesium 1.6 (1.6-2.3) mg/dL Total Bilirubin 0.8 (0.2-1.3) mg/dL AST 34 (14-36) U/L ALT 28 (9-52) U/L Alkaline Phosphatase 148 H (38-126) U/L Total Creatine Kinase <20 L (30-135) U/L CK-MB (CK-2) 0.4 (0.0-2.4) ng/mL CK-MB (CK-2) Rel Index Troponin I <0.012 (0.000-0.034) ng/mL NT-Pro-B Natriuret Pep pg/mL Total Protein 5.2 L (6.3-8.2) g/dL Albumin 2.3 L (3.5-5.0) g/dL Urine Color Urine Appearance (Clear) Urine pH (5.0-8.0) Ur Specific Marshall (1.001-1.035) Urine Protein (Negative) Urine Glucose (UA) (Negative) Urine Ketones (Negative) Urine Blood (Negative) Urine Nitrite (Negative) Urine Bilirubin (Negative) Urine Urobilinogen (<2.0) mg/dL Ur Leukocyte Esterase (Negative) Urine RBC (0-5) /hpf Urine WBC (0-5) /hpf Ur Squamous Epith Cells (0-4) /hpf Blood Type Blood Type Recheck Antibody Screen Spec Expiration Date 12/19/17 12/19/17 12/19/17 Range/Units 16:30 16:30 16:30 WBC (3.8-10.6) k/uL RBC (3.80-5.40) m/uL Hgb (11.4-16.0) gm/dL Hct (34.0-46.0) % MCV (80.0-100.0) fL MCH (25.0-35.0) pg MCHC (31.0-37.0) g/dL RDW (11.5-15.5) % Plt Count (150-450) k/uL Neutrophils % (Manual) % Lymphocytes % (Manual) % Monocytes % (Manual) % Eosinophils % (Manual) % Metamyelocytes % % Promyelocytes % % Blast Cells % % Neutrophils # (Manual) (1.3-7.7) k/uL Lymphocytes # (Manual) (1.0-4.8) k/uL Monocytes # (Manual) (0-1.0) k/uL Eosinophils # (Manual) (0-0.7) k/uL Metamyelocytes # (Man) (0) k/uL Promyelocytes # (Man) (0) k/uL Blast Cells # (Man) (0) k/uL Nucleated RBCs (0-0) /100 WBC Polychromasia Hypochromasia Poikilocytosis Anisocytosis Macrocytosis PT 12.6 H (9.0-12.0) sec INR 1.3 H (<1.2) APTT 40.3 H (22.0-30.0) sec Sodium (137-145) mmol/L Potassium (3.5-5.1) mmol/L Chloride (98-107) mmol/L Carbon Dioxide (22-30) mmol/L Anion Gap mmol/L BUN (7-17) mg/dL Creatinine (0.52-1.04) mg/dL Est GFR (MDRD) Af Amer (>60 ml/min/1.73 sqM) Est GFR (MDRD) Non-Af (>60 ml/min/1.73 sqM) Glucose (74-99) mg/dL Plasma Lactic Acid Eddie 1.5 (0.7-2.0) mmol/L Calcium (8.4-10.2) mg/dL Phosphorus (2.5-4.5) mg/dL Magnesium (1.6-2.3) mg/dL Total Bilirubin (0.2-1.3) mg/dL AST (14-36) U/L ALT (9-52) U/L Alkaline Phosphatase (38-126) U/L Total Creatine Kinase (30-135) U/L CK-MB (CK-2) (0.0-2.4) ng/mL CK-MB (CK-2) Rel Index Troponin I (0.000-0.034) ng/mL NT-Pro-B Natriuret Pep 5680 pg/mL Total Protein (6.3-8.2) g/dL Albumin (3.5-5.0) g/dL Urine Color Urine Appearance (Clear) Urine pH (5.0-8.0) Ur Specific Marshall (1.001-1.035) Urine Protein (Negative) Urine Glucose (UA) (Negative) Urine Ketones (Negative) Urine Blood (Negative) Urine Nitrite (Negative) Urine Bilirubin (Negative) Urine Urobilinogen (<2.0) mg/dL Ur Leukocyte Esterase (Negative) Urine RBC (0-5) /hpf Urine WBC (0-5) /hpf Ur Squamous Epith Cells (0-4) /hpf Blood Type Blood Type Recheck Antibody Screen Spec Expiration Date 12/19/17 12/19/17 Range/Units 16:30 18:55 WBC (3.8-10.6) k/uL RBC (3.80-5.40) m/uL Hgb (11.4-16.0) gm/dL Hct (34.0-46.0) % MCV (80.0-100.0) fL MCH (25.0-35.0) pg MCHC (31.0-37.0) g/dL RDW (11.5-15.5) % Plt Count (150-450) k/uL Neutrophils % (Manual) % Lymphocytes % (Manual) % Monocytes % (Manual) % Eosinophils % (Manual) % Metamyelocytes % % Promyelocytes % % Blast Cells % % Neutrophils # (Manual) (1.3-7.7) k/uL Lymphocytes # (Manual) (1.0-4.8) k/uL Monocytes # (Manual) (0-1.0) k/uL Eosinophils # (Manual) (0-0.7) k/uL Metamyelocytes # (Man) (0) k/uL Promyelocytes # (Man) (0) k/uL Blast Cells # (Man) (0) k/uL Nucleated RBCs (0-0) /100 WBC Polychromasia Hypochromasia Poikilocytosis Anisocytosis Macrocytosis PT (9.0-12.0) sec INR (<1.2) APTT (22.0-30.0) sec Sodium (137-145) mmol/L Potassium (3.5-5.1) mmol/L Chloride (98-107) mmol/L Carbon Dioxide (22-30) mmol/L Anion Gap mmol/L BUN (7-17) mg/dL Creatinine (0.52-1.04) mg/dL Est GFR (MDRD) Af Amer (>60 ml/min/1.73 sqM) Est GFR (MDRD) Non-Af (>60 ml/min/1.73 sqM) Glucose (74-99) mg/dL Plasma Lactic Acid Eddie (0.7-2.0) mmol/L Calcium (8.4-10.2) mg/dL Phosphorus (2.5-4.5) mg/dL Magnesium (1.6-2.3) mg/dL Total Bilirubin (0.2-1.3) mg/dL AST (14-36) U/L ALT (9-52) U/L Alkaline Phosphatase (38-126) U/L Total Creatine Kinase (30-135) U/L CK-MB (CK-2) (0.0-2.4) ng/mL CK-MB (CK-2) Rel Index Troponin I (0.000-0.034) ng/mL NT-Pro-B Natriuret Pep pg/mL Total Protein (6.3-8.2) g/dL Albumin (3.5-5.0) g/dL Urine Color Yellow Urine Appearance Cloudy H (Clear) Urine pH 5.5 (5.0-8.0) Ur Specific Marshall 1.020 (1.001-1.035) Urine Protein 1+ H (Negative) Urine Glucose (UA) Negative (Negative) Urine Ketones Negative (Negative) Urine Blood Moderate H (Negative) Urine Nitrite Negative (Negative) Urine Bilirubin Negative (Negative) Urine Urobilinogen <2.0 (<2.0) mg/dL Ur Leukocyte Esterase Moderate H (Negative) Urine RBC <1 (0-5) /hpf Urine WBC <1 (0-5) /hpf Ur Squamous Epith Cells <1 (0-4) /hpf Blood Type O Negative Blood Type Recheck No Antibody Screen NEGATIVE Spec Expiration Date 12/22/2017 - 2329 Disposition Clinical Impression: Dehydration, Weakness, Thrombocytopenia, Anemia, Myelodysplastic syndrome, Renal insufficiency, Dyspnea Disposition: HOME SELF-CARE Condition: Fair Instructions: Dehydration (ED), Weakness (ED), Thrombocytopenia (ED), Anemia ( ED) Referrals: Marty Boyce MD [Primary Care Provider] - 1-2 days Time of Disposition: 19:35
[2017-12-19 17:12] LABS: Anisocytosis Slight; HCT 25.9 % (34.0-46.0); HGB 8.1 gm/dL (11.4-16.0); Hypochromasia Moderate; MCH 30.2 pg (25.0-35.0); MCHC 31.4 g/dL (31.0-37.0); Macrocytosis Slight; Mean Platelet Volume 15.6; Poikilocytosis Moderate; RBC 2.69 m/uL (3.80-5.40); RDW 18.1 % (11.5-15.5); WBC 13.6 k/uL (3.8-10.6)
[2017-12-19 17:16] LABS: INR 1.3 (<1.2); Partial Thromboplastin Time 40.3 sec (22.0-30.0); Prothrombin Time 12.6 sec (9.0-12.0)
--- NOTE | 2017-12-19 17:16 | XR ---
EXAMINATION: XR chest 2V DATE AND TIME: 12/19/2017 5:07 PM ORDERING PROVIDER: Mitchell Alvarez DO CLINICAL INDICATION: Weakness dehydration, recent UTI TECHNIQUE: PA and lateral COMPARISON: 04/23/2017 DESCRIPTION: Right IJ Port-A-Cath tip superimposed over the mid SVC. EKG leads noted. The lungs are clear and well-expanded. The pleural spaces are negative. The cardiac silhouette is not enlarged. The skeletal structures are intact without focal findings. The soft tissues are unremarkable. IMPRESSION: NO ACUTE PROCESS.
[2017-12-19 17:28] LABS: Creatine Kinase <20 U/L (30-135)
[2017-12-19 17:35] LABS: Albumin 2.3 g/dL (3.5-5.0); Calcium 7.9 mg/dL (8.4-10.2); Magnesium 1.6 mg/dL (1.6-2.3); Phosphorus 3.6 mg/dL (2.5-4.5); Potassium 4.7 mmol/L (3.5-5.1); Total Bilirubin 0.8 mg/dL (0.2-1.3); Total Protein 5.2 g/dL (6.3-8.2)
[2017-12-19 17:41] LABS: Creatine Kinase MB 0.4 ng/mL (0.0-2.4); Troponin I <0.012 ng/mL (0.000-0.034)
[2017-12-19 17:43] LABS: Platelet Count 41 k/uL (150-450)
[2017-12-19 17:45] LABS: Blast Cells # (M) 0.14 k/uL (0); Eosinophils # (M) 0.14 k/uL (0-0.7); Lymphocytes # (M) 3.13 k/uL (1.0-4.8); Metamyelocytes # (M) 0.41 k/uL (0); Metamyelocytes % 3 %; Monocytes # (M) 1.63 k/uL (0-1.0); Neutrophils # (M) 8.02 k/uL (1.3-7.7); Neutrophils % (M) 59 %; Nucleated Red Blood Cells 0 /100 WBC (0-0); Polychromasia Present; Promyelocytes # (M) 0.27 k/uL (0); Promyelocytes % 2 %; Total Cells Counted 200
[2017-12-19 19:03] LABS: Appearance,Urine Cloudy (Clear); Bilirubin,Urine Negative (Negative); Blood,Urine Moderate (Negative); Color,Urine Yellow; Glucose,Urine (UA) Negative (Negative); Ketones,Urine Negative (Negative); Leukocyte Esterase,Urine Moderate (Negative); Nitrite,Urine Negative (Negative); PH, Urine 5.5 (5.0-8.0); Protein,Urine 1+ (Negative); RBC,Urine <1 /hpf (0-5); Squamous Epithelial Cell,Urine <1 /hpf (0-4); Urobilinogen,Urine <2.0 mg/dL (<2.0); WBC,Urine <1 /hpf (0-5)
[2017-12-19 20:00] VITALS: BP 107/61; PULSE 96; RESP 18; TEMP 100.1
== END 2017-12-19 19:59 | disposition home or self-care (01) ==
LOC: EC 16:14
DX: D46.9 Myelodysplastic syndrome, unspecified (principal); D64.9 Anemia, unspecified; D69.6 Thrombocytopenia, unspecified; E86.0 Dehydration; N28.9 Disorder of kidney and ureter, unspecified; I45.10 Unspecified right bundle-branch block; D72.829 Elevated white blood cell count, unspecified; R05 Cough; I10 Essential (primary) hypertension; E11.9 Type 2 diabetes mellitus without complications; Z79.82 Long term (current) use of aspirin; Z79.84 Long term (current) use of oral hypoglycemic drugs; Z79.899 Other long term (current) drug therapy; Z85.42 Personal history of malignant neoplasm of other parts of uterus; Z92.3 Personal history of irradiation; Z90.710 Acquired absence of both cervix and uterus
CPT/HCPCS: 36415; 71046; 80053; 81001; 82550; 82553; 83605; 83735; 83880; 84100; 84484; 85025; 85610; 85730; 86850; 86900; 86901; 87040; 93005; 94640; 99285

== ENCOUNTER 2017-12-30 10:50 | Inpatient (IN) | payer MEDICARE, OTHER ==
[2017-12-30] MEDS ORDERED: SODIUM CHLORIDE 0.9% 500 ML IV STA (11:10)
[2017-12-30] MEDS ORDERED: ONDANSETRON 4 MG/2 ML VIAL IVP STA (11:10)
[2017-12-30] MEDS ORDERED: PANTOPRAZOLE 40 MG/10 ML VIAL IVP STA (11:10)
[2017-12-30] MEDS ORDERED: SODIUM CHLORIDE 0.9% 1,000 ML IV STA (11:10)
[2017-12-30 11:46] LABS: Albumin 2.3 g/dL (3.5-5.0); Calcium 7.3 mg/dL (8.4-10.2); Phosphorus 5.5 mg/dL (2.5-4.5); Potassium 5.1 mmol/L (3.5-5.1); Total Bilirubin 0.7 mg/dL (0.2-1.3); Total Protein 4.9 g/dL (6.3-8.2)
[2017-12-30 11:53] LABS: Anisocytosis Slight; HCT 21.1 % (34.0-46.0); Hypochromasia Marked; MCH 29.4 pg (25.0-35.0); MCHC 29.8 g/dL (31.0-37.0); MCV 98.6 fL (80.0-100.0); Macrocytosis Slight; Mean Platelet Volume 15.2; Poikilocytosis Slight; RBC 2.14 m/uL (3.80-5.40); RDW 17.2 % (11.5-15.5)
[2017-12-30 11:57] LABS: INR 1.4 (<1.2); Partial Thromboplastin Time 33.5 sec (22.0-30.0); Prothrombin Time 13.3 sec (9.0-12.0)
[2017-12-30 11:59] LABS: Creatine Kinase <20 U/L (30-135)
--- NOTE | 2017-12-30 12:00 | XR ---
EXAMINATION TYPE: XR chest 2V DATE OF EXAM: 12/30/2017 COMPARISON: Chest x-ray December 19, 2016. CTA chest April 23, 2017. HISTORY: Weakness and weight loss TECHNIQUE: Frontal and lateral views of the chest are obtained. FINDINGS: There is stable right internal jugular Mediport catheter. There is no focal air space opac ity, pleural effusion, or pneumothorax seen. The cardiac silhouette size is stable and mildly enlarg ed with atherosclerotic aorta. Underlying scoliosis with multilevel spurring and spine is redemonstra merly. There is partial visualization of known splenomegaly. IMPRESSION: Cardiomegaly without suspicious acute pulmonary process.
[2017-12-30 12:06] LABS: HGB 6.3 gm/dL (11.4-16.0)
--- NOTE | 2017-12-30 12:09 | ED ---
General Adult HPI - General Chief complaint: Nausea/Vomiting/Diarrhea Stated complaint: NVD/Weakness Time Seen by Provider: 12/30/17 11:09 Source: patient, EMS, RN notes reviewed, old records reviewed Mode of arrival: EMS - History of Present Illness Initial comments: This is an 82-year-old female the ER for evaluation, patient is poor historian. Patient history is obtained from chart, EMS. Patient's brought in for nausea and vomiting, weakness. This is been for 3 days. No significant improvement. No episodes of syncope, no diarrhea. - Related Data Home Medications Medication Instructions Recorded Confirmed Atorvastatin [Lipitor] 20 mg PO DAILY 12/19/17 12/30/17 Dronabinol [Marinol] 2.5 mg PO AC-TID 12/19/17 12/30/17 Sertraline [Zoloft] 200 mg PO DAILY 12/19/17 12/30/17 metFORMIN HCL [Glucophage] 500 mg PO AC-BRKFST 12/19/17 12/30/17 Cranberry 2500mg 1 tab PO SUTUTHSA 12/30/17 12/30/17 Iron 100mg 100 mg PO DAILY 12/30/17 12/30/17 Sulfamethox-Tmp 800-160Mg [Bactrim 1 tab PO MOWEFR 12/30/17 12/30/17 DS 800-160 mg] Previous Rx's Medication Instructions Recorded Clopidogrel [Plavix] 75 mg PO DAILY #30 tab 06/21/16 Metoprolol Tartrate [Lopressor] 25 mg PO BID #60 tab 06/21/16 Nitroglycerin Sl Tabs [Nitrostat] 0.4 mg SUBLINGUAL Q5M PRN #25 tab 06/21/16 Allergies Allergy/AdvReac Type Severity Reaction Status Date / Time No Known Allergies Allergy Verified 12/30/17 11:27 Review of Systems ROS Statement: Those systems with pertinent positive or pertinent negative responses have been documented in the HPI. ROS Other: All systems not noted in ROS Statement are negative. Past Medical History Past Medical History: Cancer, Diabetes Mellitus, Hypertension Additional Past Medical History / Comment(s): NIDDM type II, pulmonary htn, UTI' s, osteopenia, herron injury as a child, rectal bleed yrs ago, back pain at times, uterine cancer with surgery and radiation 5 yrs ago. History of Any Multi-Drug Resistant Organisms: None Reported Past Surgical History: Appendectomy, Cholecystectomy, Hysterectomy, Joint Replacement Additional Past Surgical History / Comment(s): total hysterectomy with 26 lymph nodes removed, L total knee arthroplasty, L breast bx-benign, colonoscopy-normal , bilateral eyelid surgery, bilateral cataract removal with lens implants. Past Anesthesia/Blood Transfusion Reactions: No Reported Reaction Additional Past Anesthesia/Blood Transfusion Reaction / Comment(s): Pt states seh has received blood in the past without reaction. Past Psychological History: No Psychological Hx Reported Smoking Status: Never smoker Past Alcohol Use History: None Reported Past Drug Use History: None Reported - Past Family History Mother Family Medical History: No Reported History Additional Family Medical History / Comment(s): Mother was healthy. She at the age of 78yrs. Father Family Medical History: CVA/TIA Additional Family Medical History / Comment(s): Father had heart problems and had TIA's. He also had mental issues. He at the age of 72 yrs. General Exam General appearance: alert, in distress, cachectic Head exam: Present: atraumatic, normocephalic, normal inspection Eye exam: Present: normal appearance, PERRL, EOMI. Absent: scleral icterus, conjunctival injection, periorbital swelling ENT exam: Present: normal exam, mucous membranes moist Neck exam: Present: normal inspection. Absent: tenderness, meningismus, lymphadenopathy Respiratory exam: Present: normal lung sounds bilaterally. Absent: respiratory distress, wheezes, rales, rhonchi, stridor Cardiovascular Exam: Present: regular rate, normal rhythm, normal heart sounds. Absent: systolic murmur, diastolic murmur, rubs, gallop, clicks GI/Abdominal exam: Present: soft, normal bowel sounds. Absent: distended, tenderness, guarding, rebound, rigid Extremities exam: Present: normal inspection, full ROM, normal capillary refill. Absent: tenderness, pedal edema, joint swelling, calf tenderness Back exam: Present: normal inspection Neurological exam: Present: alert, oriented X3, CN II-XII intact Psychiatric exam: Present: normal affect, normal mood Skin exam: Present: warm, dry, intact, normal color. Absent: rash Course Vital Signs 12/30/17 12/30/17 10:55 11:30 Temperature 98.5 F Pulse Rate 89 89 Respiratory 18 18 Rate Blood Pressure 131/60 120/68 O2 Sat by Pulse 100 100 Oximetry - Reevaluation(s) Reevaluation #1: 12/30/17 12:18 Patient is without any current active vomiting, she is asking for something to drink EKG Findings - EKG Comments: EKG Findings:: EKG shows sinus rhythm rate of 80, MT 164, QRS 128, QTC 493 Medical Decision Making - Medical Decision Making 82 female the ER for nausea and vomiting, likely upper GI bleed, with anemia. Patient to be admitted for transfusion and continued evaluation hemodynamic support - Lab Data Result diagrams: 12/30/17 11:05 12/30/17 11:05 Lab Results 12/30/17 12/30/17 12/30/17 Range/Units 11:05 11:05 11:05 WBC 23.7 H (3.8-10.6) k/uL RBC 2.14 L (3.80-5.40) m/uL Hgb 6.3 L* D (11.4-16.0) gm/dL Hct 21.1 L (34.0-46.0) % MCV 98.6 (80.0-100.0) fL MCH 29.4 (25.0-35.0) pg MCHC 29.8 L (31.0-37.0) g/dL RDW 17.2 H (11.5-15.5) % PT (9.0-12.0) sec INR (<1.2) APTT (22.0-30.0) sec Sodium 141 (137-145) mmol/L Potassium 5.1 (3.5-5.1) mmol/L Chloride 113 H (98-107) mmol/L Carbon Dioxide 12 L (22-30) mmol/L Anion Gap 16 mmol/L BUN 68 H (7-17) mg/dL Creatinine 1.87 H (0.52-1.04) mg/dL Est GFR (MDRD) Af Amer 31 (>60 ml/min/1.73 sqM) Est GFR (MDRD) Non-Af 26 (>60 ml/min/1.73 sqM) Glucose 143 H (74-99) mg/dL Plasma Lactic Acid Eddie (0.7-2.0) mmol/L Calcium 7.3 L (8.4-10.2) mg/dL Phosphorus 5.5 H (2.5-4.5) mg/dL Magnesium 2.0 (1.6-2.3) mg/dL Total Bilirubin 0.7 (0.2-1.3) mg/dL AST 23 (14-36) U/L ALT 22 (9-52) U/L Alkaline Phosphatase 119 (38-126) U/L Total Creatine Kinase <20 L (30-135) U/L CK-MB (CK-2) 1.2 (0.0-2.4) ng/mL CK-MB (CK-2) Rel Index Troponin I <0.012 (0.000-0.034) ng/mL Total Protein 4.9 L (6.3-8.2) g/dL Albumin 2.3 L (3.5-5.0) g/dL 12/30/17 12/30/17 Range/Units 11:05 11:05 WBC (3.8-10.6) k/uL RBC (3.80-5.40) m/uL Hgb (11.4-16.0) gm/dL Hct (34.0-46.0) % MCV (80.0-100.0) fL MCH (25.0-35.0) pg MCHC (31.0-37.0) g/dL RDW (11.5-15.5) % PT 13.3 H (9.0-12.0) sec INR 1.4 H (<1.2) APTT 33.5 H (22.0-30.0) sec Sodium (137-145) mmol/L Potassium (3.5-5.1) mmol/L Chloride (98-107) mmol/L Carbon Dioxide (22-30) mmol/L Anion Gap mmol/L BUN (7-17) mg/dL Creatinine (0.52-1.04) mg/dL Est GFR (MDRD) Af Amer (>60 ml/min/1.73 sqM) Est GFR (MDRD) Non-Af (>60 ml/min/1.73 sqM) Glucose (74-99) mg/dL Plasma Lactic Acid Eddie 0.6 L (0.7-2.0) mmol/L Calcium (8.4-10.2) mg/dL Phosphorus (2.5-4.5) mg/dL Magnesium (1.6-2.3) mg/dL Total Bilirubin (0.2-1.3) mg/dL AST (14-36) U/L ALT (9-52) U/L Alkaline Phosphatase (38-126) U/L Total Creatine Kinase (30-135) U/L CK-MB (CK-2) (0.0-2.4) ng/mL CK-MB (CK-2) Rel Index Troponin I (0.000-0.034) ng/mL Total Protein (6.3-8.2) g/dL Albumin (3.5-5.0) g/dL - Radiology Data Radiology results: report reviewed (Chest x-rays negative for acute disease), image reviewed Disposition Clinical Impression: Weakness, Anemia, Nausea and vomiting Disposition: ADMITTED IP TO THIS HOSP Condition: Fair Referrals: Marty Boyce MD [Primary Care Provider] - 1-2 days
[2017-12-30 12:12] LABS: Creatine Kinase MB 1.2 ng/mL (0.0-2.4); Troponin I <0.012 ng/mL (0.000-0.034)
[2017-12-30 12:25] LABS: Band Neutrophils % 1 %; Blast Cells # (M) 0.23 k/uL (0); Eosinophils # (M) 0.23 k/uL (0-0.7); Lymphocytes # (M) 3.22 k/uL (1.0-4.8); Metamyelocytes # (M) 1.38 k/uL (0); Metamyelocytes % 6 %; Monocytes # (M) 1.61 k/uL (0-1.0); Myelocytes # (M) 2.99 k/uL (0); Myelocytes % 13 %; Neutrophils % (M) 59 %; Nucleated Red Blood Cells 3 /100 WBC (0-0); Promyelocytes # (M) 0.23 k/uL (0); Promyelocytes % 1 %; Total Cells Counted 200
[2017-12-30 12:28] LABS: Large Platelets Present; Platelet Count 32 k/uL (150-450)
[2017-12-30] MEDS ORDERED: SODIUM CHLORIDE 0.9% 1,000 ML IV ONE (12:35)
[2017-12-30 12:36] LABS: Appearance,Urine Turbid (Clear); Bacteria,Urine Moderate /hpf; Bilirubin,Urine Negative (Negative); Blood,Urine Moderate (Negative); Color,Urine Yellow; Glucose,Urine (UA) Negative (Negative); Ketones,Urine 1+ (Negative); Leukocyte Esterase,Urine Large (Negative); Mucus,Urine Rare /hpf; PH, Urine 5.5 (5.0-8.0); Protein,Urine 1+ (Negative); RBC,Urine 35 /hpf (0-5); Specific Gravity,Urine 1.015 (1.001-1.035); Squamous Epithelial Cell,Urine 1 /hpf (0-4); Urobilinogen,Urine <2.0 mg/dL (<2.0); WBC,Urine >182 /hpf (0-5)
[2017-12-30] MEDS ORDERED: NITROGLYCERIN SL TABS 0.4 MG TAB SUBLINGUAL PRN (16:10)
[2017-12-30] MEDS ORDERED: IOHEXOL 350 MG/ML 25 ML BOTTLE (ORAL USE) PO PRN (16:21)
[2017-12-30] MEDS: SODIUM CHLORIDE 0.9% 1,000 ML IV SCH (17:15)
--- NOTE | 2017-12-30 18:02 | HP ---
HISTORY AND PHYSICAL CHIEF COMPLAINT: Nausea, vomiting and as well as generalized weakness and anemia. HISTORY OF PRESENT ILLNESS: This 82-year-old woman with a past history of multiple medical problems, myelodysplastic syndrome, history of recurrent UTIs, history of CAD, stent, history of diabetes, history of hypertension, history of nicotine dependence, being followed by Dr. Boyce in the outpatient setting was not feeling well over the past several days. Patient apparently had myelodysplastic syndrome receiving regular transfusions, but the patient was off transfusion a couple of months, but in October patient had an episode of Influenza A and B. The patient was treated in [facility]. Patient went home. Patient complained of increasing weakness and tiredness. Patient also had diarrhea also and staff also noted that the stool is probably coming from the vaginal area also and the possibility of colovesical fistula is being considered. Patient admitted for further evaluation and treatment. There is no history of fever, rigors or chills. No history of headache, loss of consciousness or seizures. PAST MEDICAL HISTORY: History of CAD, history of diabetes and hypertension, Influenza A and B. CURRENT MEDICATIONS: Medications prior to admission include home medications are: 1. Glucophage 500 mg a.c. breakfast. 2. Bactrim DS 1 p.o. Saturday, Saturday and Saturday. 3. Zoloft 200 mg daily. 4. Nitrostat 0.4 mg sublingual p.r.n. 5. Lopressor 25 mg b.i.d. 6. Iron 100 mg b.i.d. 7. Marinol 2.5 mg a.c. t.i.d. 8. Cranberry 1 tablets Saturday, Saturday, . 9. Plavix 75 mg. 10.Lipitor 20 mg daily. ALLERGIES: None. FAMILY HISTORY: No history of heart disease or strokes in the family. SOCIAL HISTORY: No history of smoking, no history of alcohol. REVIEW OF SYSTEMS: ENT: Diminished hearing, diminished vision. CARDIOVASCULAR: No angina. Respiratory: No cough. GI as mentioned earlier. : As mentioned earlier. Central nervous system: No numbness, generalized weakness. Allergy/Immunology: No asthma or hayfever. Musculoskeletal: As mentioned earlier. Hematology/Oncology: No history of anemia. Endocrine: Diabetes. Constitutional: As mentioned earlier. Dermatology: Negative. Rheumatology: Negative. Psychiatric: As mentioned earlier. PHYSICAL EXAMINATION: Alert and oriented x3. Pulse is 89, blood pressure 115/67, respirations 16, temperature is 100 degrees, pulse ox is 99% on room air. HEENT: Conjunctivae normal. Oral mucosa dry. Neck is no jugular venous distention. No carotid bruit. No lymph node enlargement. Cardiovascular S1-S2 muffled. No S3, no S4. RESPIRATORY: Breath sounds diminished in the bases. A few scattered rhonchi and crackles. ABDOMEN: Soft. Mild diffuse discomfort. No guarding. No rigidity. Mass palpable. Legs: No edema and no swelling. Nervous system: Higher functions as mentioned earlier. Moves all 4 limbs. No focal motor or sensory deficits. Lymphatics: No lymph nodes palpable in the neck, axillae or groin. Skin no ulcer, rash or bleeding. LABS: WBC 23, hemoglobin 6.3, platelets are 32 and INR is 1.4. Creatinine is 1.87. UA noted. ASSESSMENT: 1. Generalized weakness and tiredness, possibly urinary tract infection with sepsis. 2. Rule out colovesical fistula. 3. Increased WBC. 4. Anemia, acute myelodysplastic syndrome, acute exacerbation. 5. Thrombocytopenia. 6. Mild coagulopathy. 7. Increased creatinine with chronic kidney stage 3. 8. History of coronary artery disease, stent. 9. History of diabetes type 2. 10.Hypertension. 11.History of recent influenza A and B. 12.Gait dysfunction. 13.History of cholecystectomy. 14.History of hysterectomy. 15.History of degenerative joint disease. RECOMMENDATIONS AND DISCUSSION: In this 82-year-old woman who presented with multiple complex medical issues, we will monitor the patient closely, continue the current medications. We will initiate broad- spectrum IV antibiotics. Obtain cultures. I would also recommend a CT scan of the abdomen and pelvis and as well surgical evaluation to rule out the possibility of colovesical fistula. Otherwise we will obtain the cultures. The patient will be transfused. Hemoglobin 6.3 at this time. Continue to monitor. PT, OT also evaluated once the patient is stabilized. Otherwise, broad-spectrum IV antibiotics initiated. Overall prognosis guarded because of multiple complex medical issues. Further recommendations to follow. Copy of dictation being forwarded to Dr. Boyce who is the primary physician. MMODL / IJN: [id number] /
[2017-12-30] MEDS: DRONABINOL 2.5 MG CAP PO SCH (18:05)
[2017-12-30] MEDS: PIPERACILLIN-TAZOBACTAM 3.375 GM in DEXTROSE/WATER 1 50ML.BAG IVPB SCH (18:05)
[2017-12-30] MEDS: INSULIN ASPART 100 UNIT/ML 1 ML 10 ML VIAL SQ SCH ×2 (18:05→20:23)
--- NOTE | 2017-12-30 18:23 | CT ---
EXAMINATION TYPE: CT abdomen pelvis wo con DATE OF EXAM: 12/30/2017 COMPARISON: NONE INDICATION: Stool in the vaginal canal DLP: 646 mGycm, Automated exposure control for dose reduction was used. CONTRAST: 0 mL of Omnipaque 350. Study performed rectal contrast TECHNIQUE: Axial images were obtained from above the diaphragm to the pubic rami in the axial plane a t 5 mm thick sections. Reconstructed images are reviewed on the computer in the coronal plane. FINDINGS: Limited CT sections are obtained the lung bases. There is mild infiltrate in the medial posterior ri ght lung base. Correlate for atelectasis and pneumonia.. Coronary artery calcification is present. CT ABDOMEN: Liver: Normal Spleen: Markedly enlarged. This is an AP dimension of 14.6 cm. Cranial caudal dimension is 15.1 cm. Pancreas: Normal Adrenal glands: The adrenal glands are normal. Gallbladder: Not identified Kidneys: No masses are evident. No hydronephrosis is present. No cysts are present. No renal stone s are identified. Aorta: Vascular calcification is within the aorta. Inferior vena cava: Normal. CT PELVIS: There is a large thickening through the distal sigmoid colon. Small amount of contrast is within the sigmoid colon at this region. This also extends into the urinary bladder with a urine contrast level. Series 3 image 75. Colovesical fistula is felt to be present. Free air is also present within the ur inary bladder. Small amount of contrast is within the descending colon. Findings are highly suggestiv e for a distal sigmoid neoplasm with a colovesical fistula. Uterus not clearly identified. The vaginal vault identified with a small amount of air. At the vagina l cuff region may be a small amount of contrast which appears to communicate with the sigmoid mass. C olovaginal fistula is likely present. Series 3 image 72., Series 5 image 33. Few diverticuli are present. Findings potentially could be from acute diverticulitis although this is felt to be less likely within the differential. Appendix: Not identified Urinary bladder: Air-fluid level is present. A contrast fluid level is also present. Colovesical fist zelda is likely present. Genitourinary structures: Uterus not clearly identified. Adnexal regions are clear. Contrast from the rectum may be entering the vaginal vault region. Osseous structures: No suspicious lytic or sclerotic lesions. Facet hypertrophy is present. IMPRESSIONS: 1. 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 2. Splenomegaly
[2017-12-30] MEDS: HYDROcodone/APAP 5-325MG 1 EACH TAB PO PRN (19:30)
[2017-12-30 20:09] LABS: Glucose,Whole Blood 143 mg/dL (75-99)
[2017-12-30] MEDS: METOPROLOL TARTRATE 12.5 MG TAB PO SCH (20:25)
[2017-12-30] MEDS ORDERED: METOPROLOL TARTRATE 25 MG TAB PO SCH (21:00)
[2017-12-30] MEDS ORDERED: HEPARIN SODIUM,PORCINE 5,000 UNIT/ML 1 ML VIAL SQ SCH (21:00)
[2017-12-30 23:05] VITALS: RESP 16
[2017-12-31] MEDS: PIPERACILLIN-TAZOBACTAM 3.375 GM in DEXTROSE/WATER 1 50ML.BAG IVPB SCH ×3 (05:54→21:10)
[2017-12-31 06:03] LABS: Hemoglobin A1C 6.4 % (4.0-6.0)
[2017-12-31 07:04] LABS: Glucose,Whole Blood 102 mg/dL (75-99)
[2017-12-31] MEDS: SODIUM CHLORIDE 0.9% 1,000 ML IV SCH (07:08)
[2017-12-31] MEDS: INSULIN ASPART 100 UNIT/ML 1 ML 10 ML VIAL SQ SCH ×4 (07:08→21:03)
[2017-12-31] MEDS: DRONABINOL 2.5 MG CAP PO SCH ×3 (07:10→17:11)
[2017-12-31] MEDS ORDERED: metFORMIN 500 MG TAB PO SCH (07:30)
[2017-12-31 07:34] LABS: Anisocytosis Slight; HCT 25.9 % (34.0-46.0); Hypochromasia Moderate; MCH 29.3 pg (25.0-35.0); MCHC 30.9 g/dL (31.0-37.0); MCV 94.7 fL (80.0-100.0); Macrocytosis Slight; Mean Platelet Volume 13.7; Poikilocytosis Moderate; RBC 2.73 m/uL (3.80-5.40); RDW 18.1 % (11.5-15.5)
[2017-12-31 07:42] LABS: Platelet Count 29 k/uL (150-450)
[2017-12-31 07:56] LABS: Potassium 4.8 mmol/L (3.5-5.1)
[2017-12-31 08:37] LABS: Blast Cells # (M) 0.17 k/uL (0); Lymphocytes # (M) 1.88 k/uL (1.0-4.8); Metamyelocytes # (M) 0.86 k/uL (0); Metamyelocytes % 5 %; Myelocytes # (M) 2.22 k/uL (0); Myelocytes % 13 %; Neutrophils # (M) 10.43 k/uL (1.3-7.7); Neutrophils % (M) 61 %; Nucleated Red Blood Cells 4 /100 WBC (0-0); Promyelocytes # (M) 0.51 k/uL (0); Promyelocytes % 3 %; Total Cells Counted 200; WBC 17.1 k/uL (3.8-10.6)
[2017-12-31 08:41] LABS: Polychromasia Present
[2017-12-31 08:43] LABS: Large Platelets Present
[2017-12-31] MEDS: ATORVASTATIN 20 MG TAB PO SCH (08:53)
[2017-12-31] MEDS: METOPROLOL TARTRATE 12.5 MG TAB PO SCH ×2 (08:53→21:09)
[2017-12-31] MEDS: SERTRALINE 100 MG TAB PO SCH (08:53)
[2017-12-31] MEDS ORDERED: CLOPIDOGREL 75 MG TAB PO SCH (09:00)
[2017-12-31] MEDS ORDERED: RX INFO: IV CONTRAST WAS GIVEN 1 EACH MISC MISCELLANE PRN (09:13)
[2017-12-31 10:13] VITALS: BMI 19.7
[2017-12-31 11:09] LABS: Glucose,Whole Blood 136 mg/dL (75-99)
--- NOTE | 2017-12-31 11:36 | CT ---
EXAMINATION TYPE: CT chest wo con DATE OF EXAM: 12/31/2017 COMPARISON: Prior CT chest 04/23/2017 HISTORY: endometrial CA, new mass CT DLP: 120.2 mGycm. Automated Exposure Control for Dose Reduction was Utilized. TECHNIQUE: CT scan of the thorax is performed without IV contrast. FINDINGS: LUNGS: The lungs are remarkable for a new area of abnormal soft tissue attenuation in the right lower lobe measuring approximately 2.9 cm x 2.6 cm x 2.2 cm, there is a lobular margin, some abnormal soft tissue density is less well-defined more inferiorly along the medial aspect of the right lower lobe extending to the pleural margin, some associated groundglass opacity present in the lung bases, minim al pleural fluid noted, some air bronchograms noted. Some areas of interstitial prominence noted. Que stion vague nodular density in the left upper lobe on axial image 27. The tracheobronchial tree is pa tent. MEDIASTINUM: Lack of IV contrast is noted to limit evaluation for mediastinal and especially hilar ad enopathy. There are no definitive greater than 1 cm hilar or mediastinal lymph nodes. No cardiomega ly or pericardial effusion is seen. OTHER: Proximal descending aorta measures approximately 3.1 cm, there are coronary artery calcificati ons present, the heart is enlarged. There is a port in the right pectoral region, catheter extends vi a the right jugular approach extending into the region of the cavoatrial junction, distal superior ve na cava. The spleen is markedly enlarged. IMPRESSION: Abnormal soft tissue in the right lower lobe is indeterminate, correlate to exclude pneum onia, consider follow-up to assess for resolution. Cardiomegaly, splenomegaly, coronary artery diseas e. Additional findings above. Indeterminate left upper lobe lung nodule may be present. Follow-up rec ommended.
--- NOTE | 2017-12-31 12:17 | P.GSCN ---
History of Present Illness Consult date: 12/31/17 Reason for Consult: Possible [place] vescial fistula History of present illness: 82-year-old female being seen at the request of the attending for a possible colo vesical fistula patient reportedly had been noting stool coming from the vaginal area. Patient initially presented to the emergency room with generalized weakness tiredness decreased endurance. Patient does have a past medical history of myelodysplastic syndrome, coronary artery disease, hypertension, recurrent UTIs. A recent episode of influenza A and B in October this year.. Patient is followed by an oncologist Pillo Wilson for twice a month injections arabirdie. Patient does have a history of endometrial cancer diagnosed 5 years prior. Was treated with surgery cancer was in an early stage did not require chemotherapy did receive adjuvant radiation. Additionally patient has been on aspirin Plavix has a history of coronary artery disease with stenting to the right coronary artery using a drug-eluting stent in May 2016. Patient states her last colonoscopy was 4-5 years ago is no acute findings per patient recall CAT scan of the abdomen and pelvis without contrast the report reviewed indicates colovaginal fistula and colovesical fistula suspected from a sigmoid mass to be neoplastic. Review of Systems Essentially unremarkable except as mentioned in the present illness Past Medical History Past Medical History: Blood Disorder, Coronary Artery Disease (CAD), Cancer, Diabetes Mellitus, Hypertension Additional Past Medical History / Comment(s): Pt had influenza A and B and then a UTI since October 2017 and has "gone down hill since then" per her caregiver. 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 History of Any Multi-Drug Resistant Organisms: None Reported Past Surgical History: Appendectomy, Breast Surgery, Cholecystectomy, Hysterectomy, Joint Replacement Additional Past Surgical History / Comment(s): 05/2016 PCI with stent, total hysterectomy with 26 lymph nodes removed, L total knee arthroplasty, L breast bx -benign, colonoscopy-normal, bilateral eyelid surgery, bilateral cataract removal with lens implants. Past Anesthesia/Blood Transfusion Reactions: No Reported Reaction Additional Past Anesthesia/Blood Transfusion Reaction / Comm: Received blood multiple times in the past without reaction. Past Psychological History: No Psychological Hx Reported Additional Psychological History / Comment(s): Pt resides with her spouse of 58yrs. She has a walker but still has had recent falls. There is a caregiver in the house who manages medications, ADLs and drives to appts. Smoking Status: Never smoker Past Alcohol Use History: None Reported Past Drug Use History: None Reported - Past Family History Mother Family Medical History: No Reported History Additional Family Medical History / Comment(s): Mother was healthy. She at the age of 78yrs. Father Family Medical History: CVA/TIA Additional Family Medical History / Comment(s): Father had heart problems and had TIA's. He also had mental issues. He at the age of 72 yrs. Medications and Allergies Home Medications Medication Instructions Recorded Confirmed Type Clopidogrel [Plavix] 75 mg PO DAILY #30 tab 06/21/16 12/30/17 Rx Metoprolol Tartrate [Lopressor] 25 mg PO BID #60 tab 06/21/16 12/30/17 Rx Nitroglycerin Sl Tabs [Nitrostat] 0.4 mg SUBLINGUAL Q5M PRN #25 tab 06/21/1603/14 Rx Atorvastatin [Lipitor] 20 mg PO DAILY 12/19/17 12/30/17 History Dronabinol [Marinol] 2.5 mg PO AC-TID 12/19/17 12/30/17 History Sertraline [Zoloft] 200 mg PO DAILY 12/19/17 12/30/17 History metFORMIN HCL [Glucophage] 500 mg PO AC-BRKFST 12/19/17 12/30/17 History Cranberry 2500mg 1 tab PO SUTUTHSA 12/30/17 12/30/17 History Iron 100mg 100 mg PO DAILY 12/30/17 12/30/17 History Sulfamethox-Tmp 800-160Mg [Bactrim 1 tab PO MOWEFR 12/30/17 12/30/17 History DS 800-160 mg] Allergies Allergy/AdvReac Type Severity Reaction Status Date / Time No Known Allergies Allergy Verified 12/30/17 11:27 Surgical - Exam Vital Signs Temp Pulse Resp BP Pulse Ox 98.5 F 89 18 131/60 100 12/30/17 10:55 12/30/17 10:55 12/30/17 10:55 12/30/17 10:55 03/05/18 10:55 GENERAL APPEARANCE: Frail pale 82-year-old female resting in bed reports feeling tired out oriented 3 . VITAL SIGNS: Reviewed Chest MediPort in place left anterior chest wall HEENT: Head is normocephalic and atraumatic. Pupils are equal and reactive. The nares are patent. Oropharynx is clear without lesions. NECK: Supple without lymphadenopathy. Traches midline. HEART: S1, S2. Regular rate and rhythm.Denying chest pain no murmur LUNGS: No crackles or wheezes are heard.No shortness of breath ABDOMEN: Soft, nontender, nondistended with good bowel sounds. No peritoneal signs. No palpable organomegaly or masses.Episodes of incontinent a urine and stool Vagina labia skin excoriation not able to visualize stool from the vagina at this time nursing reports having episodes of stool from the vagina no rectal stooling noted EXTREMITIES: Normal skin color and turgor. No cyanosis, rash, ulceration, clubbing or edema. Radial pedal pulses are 2/4 bilaterally. NEUROLOGICAL: No focal deficits. Strength and sensation are grossly intact. Results - Labs 12/31/17 06:54 12/31/17 06:54 Abnormal Lab Results - Last 24 Hours (Table) 12/30/17 12/30/17 12/30/17 Range/Units 11:05 11:05 11:05 WBC 23.0 H (3.8-10.6) k/uL RBC 2.14 L (3.80-5.40) m/uL Hgb 6.3 L* D (11.4-16.0) gm/dL Hct 21.1 L (34.0-46.0) % MCHC 29.8 L (31.0-37.0) g/dL RDW 17.2 H (11.5-15.5) % Plt Count 32 L* (150-450) k/uL Neutrophils # (Manual) 13.80 H (1.3-7.7) k/uL Monocytes # (Manual) 1.61 H (0-1.0) k/uL Metamyelocytes # (Man) 1.38 H (0) k/uL Myelocytes # (Manual) 2.99 H (0) k/uL Promyelocytes # (Man) 0.23 H (0) k/uL Blast Cells # (Man) 0.23 H (0) k/uL Nucleated RBCs 3 H (0-0) /100 WBC PT 13.3 H (9.0-12.0) sec INR 1.4 H (<1.2) APTT 33.5 H (22.0-30.0) sec Chloride (98-107) mmol/L Carbon Dioxide (22-30) mmol/L BUN (7-17) mg/dL Creatinine (0.52-1.04) mg/dL POC Glucose (mg/dL) (75-99) mg/dL Hemoglobin A1c (4.0-6.0) % Calcium (8.4-10.2) mg/dL Total Creatine Kinase <20 L (30-135) U/L Urine Appearance (Clear) Urine Protein (Negative) Urine Ketones (Negative) Urine Blood (Negative) Ur Leukocyte Esterase (Negative) Urine RBC (0-5) /hpf Urine WBC (0-5) /hpf Urine WBC Clumps (None) /hpf Urine Bacteria (None) /hpf Urine Mucus (None) /hpf Crossmatch 12/30/17 12/30/17 12/30/17 Range/Units 11:05 12:16 17:34 WBC (3.8-10.6) k/uL RBC (3.80-5.40) m/uL Hgb (11.4-16.0) gm/dL Hct (34.0-46.0) % MCHC (31.0-37.0) g/dL RDW (11.5-15.5) % Plt Count (150-450) k/uL Neutrophils # (Manual) (1.3-7.7) k/uL Monocytes # (Manual) (0-1.0) k/uL Metamyelocytes # (Man) (0) k/uL Myelocytes # (Manual) (0) k/uL Promyelocytes # (Man) (0) k/uL Blast Cells # (Man) (0) k/uL Nucleated RBCs (0-0) /100 WBC PT (9.0-12.0) sec INR (<1.2) APTT (22.0-30.0) sec Chloride (98-107) mmol/L Carbon Dioxide (22-30) mmol/L BUN (7-17) mg/dL Creatinine (0.52-1.04) mg/dL POC Glucose (mg/dL) (75-99) mg/dL Hemoglobin A1c 6.4 H (4.0-6.0) % Calcium (8.4-10.2) mg/dL Total Creatine Kinase (30-135) U/L Urine Appearance Turbid H (Clear) Urine Protein 1+ H (Negative) Urine Ketones 1+ H (Negative) Urine Blood Moderate H (Negative) Ur Leukocyte Esterase Large H (Negative) Urine RBC 35 H (0-5) /hpf Urine WBC >182 H (0-5) /hpf Urine WBC Clumps Many H (None) /hpf Urine Bacteria Moderate H (None) /hpf Urine Mucus Rare H (None) /hpf Crossmatch See Detail 12/30/17 12/31/17 12/31/17 Range/Units 20:05 06:54 06:54 WBC 17.1 H (3.8-10.6) k/uL RBC 2.73 L (3.80-5.40) m/uL Hgb 8.0 L D (11.4-16.0) gm/dL Hct 25.9 L (34.0-46.0) % MCHC 30.9 L (31.0-37.0) g/dL RDW 18.1 H (11.5-15.5) % Plt Count 29 L* (150-450) k/uL Neutrophils # (Manual) 10.43 H (1.3-7.7) k/uL Monocytes # (Manual) 1.20 H (0-1.0) k/uL Metamyelocytes # (Man) 0.86 H (0) k/uL Myelocytes # (Manual) 2.22 H (0) k/uL Promyelocytes # (Man) 0.51 H (0) k/uL Blast Cells # (Man) 0.17 H (0) k/uL Nucleated RBCs 4 H (0-0) /100 WBC PT (9.0-12.0) sec INR (<1.2) APTT (22.0-30.0) sec Chloride 120 H* (98-107) mmol/L Carbon Dioxide 13 L (22-30) mmol/L BUN 54 H (7-17) mg/dL Creatinine 1.39 H (0.52-1.04) mg/dL POC Glucose (mg/dL) 143 H (75-99) mg/dL Hemoglobin A1c (4.0-6.0) % Calcium 7.0 L (8.4-10.2) mg/dL Total Creatine Kinase (30-135) U/L Urine Appearance (Clear) Urine Protein (Negative) Urine Ketones (Negative) Urine Blood (Negative) Ur Leukocyte Esterase (Negative) Urine RBC (0-5) /hpf Urine WBC (0-5) /hpf Urine WBC Clumps (None) /hpf Urine Bacteria (None) /hpf Urine Mucus (None) /hpf Crossmatch 12/31/17 12/31/17 Range/Units 07:02 11:07 WBC (3.8-10.6) k/uL RBC (3.80-5.40) m/uL Hgb (11.4-16.0) gm/dL Hct (34.0-46.0) % MCHC (31.0-37.0) g/dL RDW (11.5-15.5) % Plt Count (150-450) k/uL Neutrophils # (Manual) (1.3-7.7) k/uL Monocytes # (Manual) (0-1.0) k/uL Metamyelocytes # (Man) (0) k/uL Myelocytes # (Manual) (0) k/uL Promyelocytes # (Man) (0) k/uL Blast Cells # (Man) (0) k/uL Nucleated RBCs (0-0) /100 WBC PT (9.0-12.0) sec INR (<1.2) APTT (22.0-30.0) sec Chloride (98-107) mmol/L Carbon Dioxide (22-30) mmol/L BUN (7-17) mg/dL Creatinine (0.52-1.04) mg/dL POC Glucose (mg/dL) 102 H 136 H (75-99) mg/dL Hemoglobin A1c (4.0-6.0) % Calcium (8.4-10.2) mg/dL Total Creatine Kinase (30-135) U/L Urine Appearance (Clear) Urine Protein (Negative) Urine Ketones (Negative) Urine Blood (Negative) Ur Leukocyte Esterase (Negative) Urine RBC (0-5) /hpf Urine WBC (0-5) /hpf Urine WBC Clumps (None) /hpf Urine Bacteria (None) /hpf Urine Mucus (None) /hpf Crossmatch Microbiology - Last 24 Hours (Table) 12/30/17 12:16 Urine Culture - Preliminary Urine,Voided Diabetes panel 12/30/17 12/31/17 Range/Units 17:34 06:54 Sodium 145 (137-145) mmol/L Potassium 4.8 (3.5-5.1) mmol/L Chloride 120 H* (98-107) mmol/L Carbon Dioxide 13 L (22-30) mmol/L BUN 54 H (7-17) mg/dL Creatinine 1.39 H (0.52-1.04) mg/dL Glucose 88 (74-99) mg/dL Hemoglobin A1c 6.4 H (4.0-6.0) % Calcium 7.0 L (8.4-10.2) mg/dL Calcium panel 12/31/17 Range/Units 06:54 Calcium 7.0 L (8.4-10.2) mg/dL Pituitary panel 12/31/17 Range/Units 06:54 Sodium 145 (137-145) mmol/L Potassium 4.8 (3.5-5.1) mmol/L Chloride 120 H* (98-107) mmol/L Carbon Dioxide 13 L (22-30) mmol/L BUN 54 H (7-17) mg/dL Creatinine 1.39 H (0.52-1.04) mg/dL Glucose 88 (74-99) mg/dL Calcium 7.0 L (8.4-10.2) mg/dL Adrenal panel 12/31/17 Range/Units 06:54 Sodium 145 (137-145) mmol/L Potassium 4.8 (3.5-5.1) mmol/L Chloride 120 H* (98-107) mmol/L Carbon Dioxide 13 L (22-30) mmol/L BUN 54 H (7-17) mg/dL Creatinine 1.39 H (0.52-1.04) mg/dL Glucose 88 (74-99) mg/dL Calcium 7.0 L (8.4-10.2) mg/dL Assessment and Plan Assessment: Impression Present on admission noted stooling from the vagina 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 CAT scan abdomen and pelvis report reviewed indicate 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 History of endometrial cancer diagnosed 5 years prior received adjuvant radiation no chemotherapy Known coronary artery disease with drug-eluting stent to the RCA 2015 on aspirin Plavix History of anemia acute myelodysplastic History of myelodysplastic syndrome History recurrent UTIs Thrombocytopenia Present on admission leukocytosis Type 2 diabetes hemoglobin A1c 6.4 Hypocalcemia calcium 7 CAT scan of the thorax without IV contrast done December 31 show new area abnormal soft tissue right lower lobe cannot exclude pneumonia Underweight BMI 19 Plan candidate for a colonoscopy to evaluate possible colovesical fistula once pt is off plavix for onw week Continue to hold aspirin Plavix Monitor platelet count Before any procedure platelets would need to be given per recommendations oncology hematology Dr. matthews Further surgical recommendations pending will follow with you Surgical consultation note dictated for Dr. Rincon The above impression and plan of care have been discussed and directed by signing physician. Elizabeth Jc nurse practitioner acting as scribe for signing physician.
--- NOTE | 2017-12-31 14:55 | P.CONS ---
History of Present Illness - Reason for Consult Consult date: 12/31/17 bicytopenia Requesting physician: Lexa Hernandez - Chief Complaint N,V,D - History of Present Illness The patient is 82-year-old lady who was seen by Dr. Mario in 2016 for with a prior history of endometrial cancer diagnosed about 7 years ago. She was treated with radical surgery by Dr. Hernandez. She states that the cancer was early stage and she did not require chemotherapy, but did receive adjuvant radiation. She has followed Dr. Hernandez GYNON. We evaluated her in 2016 for her macrocytic anemia, associated with low white blood cells as well as abnormal MCV and significant left shift. The left shift includes circulating blasts, confirmed on flow cytometry. At this time the patient and family chose to follow back up with Dr. Hernandez for his recommendations regarding a bone marrow biopsy. At that time an underlying bone marrow disorder was not able to be ruled out, although less likely an acute issue as chronic. We have been asked to see her today secondary to her anemia and thrombocytopenia. 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 Splenomegaly also present. There is no acute signs of bleeding. On admission her hemoglobin 6.9, she receive PRBC transfusion and today has elevated to 8. Her platelet count is 29,000 today. She is on plavix for a Cardiac Stent placement in May 2016. Her anemia appears to be stable and close to her baseline at 8, although her platlet count has been ranging in normal range until November of this year. Ms. Sanchez is a poor historian. She states she was recently seen by Dr. Hernandez, although this is unknown at this time. IV antibiotics was started today. Her PT, PTT, and INR are mildly prolonged, increased. She admits to approx 20lb weight loss over past couple months, decreased appetite, nausea and vomiting (primary complaint brought her into ED), increased weakness overall, and abdominal pain. Review of Systems A 14 point review of systems was assessed and completed to best of my ability secondary to patient is a poor historian, the accuracy of the review may be questioned. Constitutional: Reports anorexia, Reports fatigue Past Medical History Past Medical History: Blood Disorder, Coronary Artery Disease (CAD), Cancer, Diabetes Mellitus, Hypertension Additional Past Medical History / Comment(s): Pt had influenza A and B and then a UTI since October 2017 and has "gone down hill since then" per her caregiver. 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 History of Any Multi-Drug Resistant Organisms: None Reported Past Surgical History: Appendectomy, Breast Surgery, Cholecystectomy, Hysterectomy, Joint Replacement Additional Past Surgical History / Comment(s): 05/2016 PCI with stent, total hysterectomy with 26 lymph nodes removed, L total knee arthroplasty, L breast bx -benign, colonoscopy-normal, bilateral eyelid surgery, bilateral cataract removal with lens implants. Past Anesthesia/Blood Transfusion Reactions: No Reported Reaction Additional Past Anesthesia/Blood Transfusion Reaction / Comm: Received blood multiple times in the past without reaction. Past Psychological History: No Psychological Hx Reported Additional Psychological History / Comment(s): Pt resides with her spouse of 58yrs. She has a walker but still has had recent falls. There is a caregiver in the house who manages medications, ADLs and drives to appts. Smoking Status: Never smoker Past Alcohol Use History: None Reported Past Drug Use History: None Reported - Past Family History Mother Family Medical History: No Reported History Additional Family Medical History / Comment(s): Mother was healthy. She at the age of 78yrs. Father Family Medical History: CVA/TIA Additional Family Medical History / Comment(s): Father had heart problems and had TIA's. He also had mental issues. He at the age of 72 yrs. Medications and Allergies Home Medications Medication Instructions Recorded Confirmed Type Clopidogrel [Plavix] 75 mg PO DAILY #30 tab 06/21/16 12/30/17 Rx Metoprolol Tartrate [Lopressor] 25 mg PO BID #60 tab 06/21/16 12/30/17 Rx Nitroglycerin Sl Tabs [Nitrostat] 0.4 mg SUBLINGUAL Q5M PRN #25 tab 06/21/1603/14 Rx Atorvastatin [Lipitor] 20 mg PO DAILY 12/19/17 12/30/17 History Dronabinol [Marinol] 2.5 mg PO AC-TID 12/19/17 12/30/17 History Sertraline [Zoloft] 200 mg PO DAILY 12/19/17 12/30/17 History metFORMIN HCL [Glucophage] 500 mg PO AC-BRKFST 12/19/17 12/30/17 History Cranberry 2500mg 1 tab PO SUTUTHSA 12/30/17 12/30/17 History Iron 100mg 100 mg PO DAILY 12/30/17 12/30/17 History Sulfamethox-Tmp 800-160Mg [Bactrim 1 tab PO MOWEFR 12/30/17 12/30/17 History DS 800-160 mg] Darbepoetin Armando [Aranesp] 2 injection SQ [id number] 12/31/17 12/31/17 History Allergies Allergy/AdvReac Type Severity Reaction Status Date / Time No Known Allergies Allergy Verified 12/30/17 11:27 Physical Exam Vitals: Vital Signs Temp Pulse Pulse Resp BP BP Pulse Ox 12/31/17 08:00 87 16 12/31/17 07:00 97.5 F L 87 16 125/59 99 12/30/17 23:04 97.4 F L 85 16 112/58 100 12/30/17 20:56 97.9 F 94 18 95/52 97 12/30/17 20:19 97.9 F 92 16 103/53 97 12/30/17 20:01 98.2 F 93 16 102/53 98 12/30/17 19:59 97.9 F 92 16 103/53 97 12/30/17 19:52 98.3 F 91 16 122/60 96 12/30/17 19:49 98.2 F 94 16 102/53 98 12/30/17 16:44 98.3 F 91 16 122/60 96 12/30/17 15:32 18 12/30/17 15:20 100 F H 89 16 115/67 99 12/30/17 14:53 97 F L 92 18 107/55 12/30/17 14:23 96 F L 92 18 105/57 12/30/17 14:13 97.6 F 90 18 102/55 99 12/30/17 13:32 88 20 104/69 100 12/30/17 13:01 89 22 106/51 99 12/30/17 11:30 89 18 120/68 100 Intake and Output 12/30/17 12/31/17 12/31/17 22:59 06:59 14:59 Intake Total 1045 310 Balance 1045 310 Intake: Intake, IV Titration 225 Amount Sodium Chloride 0.9% 1, 225 000 ml @ 75 mls/hr IV . [id number] [facility], [facility] Rx#:[id number] Blood Product 620 310 Rc Pheresis 2 As3 Unit 0 310 [id number] Rc Pheresis As-3 Unit 310 [id number] Other 200 Rc Pheresis As-3 Unit 200 [id number] Other: Voiding Method Bedpan Diaper Diaper Incontinent # Voids 3 Weight 52.163 kg 52.163 kg Patient Weight 01/01/18 06:59 Weight 52.163 kg - Constitutional General appearance: cooperative, no acute distress, thin - EENT Eyes: anicteric sclerae, EOMI, dentition normal, normal appearance ENT: NA/AT, normal oropharynx - Neck Neck: no lymphadenopathy, normal ROM, no other, no rigidity - Respiratory Respiratory: bilateral: diminished (Bibasilar, no increased effort) - Cardiovascular Rhythm: regular leg Peripheral Edema: bilateral: None - Gastrointestinal General gastrointestinal: soft, splenomegaly (on CT, not notable on exam), tenderness - Integumentary Integumentary: pale - Neurologic no focal defects - Musculoskeletal Musculoskeletal: generalized weakness - Psychiatric Psychiatric: A&O x's 3, appropriate affect Results CBC & Chem 7: 12/31/17 06:54 12/31/17 06:54 Labs: Abnormal Lab Results - Last 24 Hours (Table) 12/30/17 12/30/17 12/30/17 Range/Units 11:05 11:05 11:05 WBC 23.0 H (3.8-10.6) k/uL RBC 2.14 L (3.80-5.40) m/uL Hgb 6.3 L* D (11.4-16.0) gm/dL Hct 21.1 L (34.0-46.0) % MCHC 29.8 L (31.0-37.0) g/dL RDW 17.2 H (11.5-15.5) % Plt Count 32 L* (150-450) k/uL Neutrophils # (Manual) 13.80 H (1.3-7.7) k/uL Monocytes # (Manual) 1.61 H (0-1.0) k/uL Metamyelocytes # (Man) 1.38 H (0) k/uL Myelocytes # (Manual) 2.99 H (0) k/uL Promyelocytes # (Man) 0.23 H (0) k/uL Blast Cells # (Man) 0.23 H (0) k/uL Nucleated RBCs 3 H (0-0) /100 WBC PT (9.0-12.0) sec INR (<1.2) APTT (22.0-30.0) sec Chloride 113 H (98-107) mmol/L Carbon Dioxide 12 L (22-30) mmol/L BUN 68 H (7-17) mg/dL Creatinine 1.87 H (0.52-1.04) mg/dL Glucose 143 H (74-99) mg/dL POC Glucose (mg/dL) (75-99) mg/dL Hemoglobin A1c (4.0-6.0) % Plasma Lactic Acid Eddie (0.7-2.0) mmol/L Calcium 7.3 L (8.4-10.2) mg/dL Phosphorus 5.5 H (2.5-4.5) mg/dL Total Creatine Kinase <20 L (30-135) U/L Total Protein 4.9 L (6.3-8.2) g/dL Albumin 2.3 L (3.5-5.0) g/dL Urine Appearance (Clear) Urine Protein (Negative) Urine Ketones (Negative) Urine Blood (Negative) Ur Leukocyte Esterase (Negative) Urine RBC (0-5) /hpf Urine WBC (0-5) /hpf Urine WBC Clumps (None) /hpf Urine Bacteria (None) /hpf Urine Mucus (None) /hpf Crossmatch 12/30/17 12/30/17 12/30/17 Range/Units 11:05 11:05 11:05 WBC (3.8-10.6) k/uL RBC (3.80-5.40) m/uL Hgb (11.4-16.0) gm/dL Hct (34.0-46.0) % MCHC (31.0-37.0) g/dL RDW (11.5-15.5) % Plt Count (150-450) k/uL Neutrophils # (Manual) (1.3-7.7) k/uL Monocytes # (Manual) (0-1.0) k/uL Metamyelocytes # (Man) (0) k/uL Myelocytes # (Manual) (0) k/uL Promyelocytes # (Man) (0) k/uL Blast Cells # (Man) (0) k/uL Nucleated RBCs (0-0) /100 WBC PT 13.3 H (9.0-12.0) sec INR 1.4 H (<1.2) APTT 33.5 H (22.0-30.0) sec Chloride (98-107) mmol/L Carbon Dioxide (22-30) mmol/L BUN (7-17) mg/dL Creatinine (0.52-1.04) mg/dL Glucose (74-99) mg/dL POC Glucose (mg/dL) (75-99) mg/dL Hemoglobin A1c (4.0-6.0) % Plasma Lactic Acid Eddie 0.6 L (0.7-2.0) mmol/L Calcium (8.4-10.2) mg/dL Phosphorus (2.5-4.5) mg/dL Total Creatine Kinase (30-135) U/L Total Protein (6.3-8.2) g/dL Albumin (3.5-5.0) g/dL Urine Appearance (Clear) Urine Protein (Negative) Urine Ketones (Negative) Urine Blood (Negative) Ur Leukocyte Esterase (Negative) Urine RBC (0-5) /hpf Urine WBC (0-5) /hpf Urine WBC Clumps (None) /hpf Urine Bacteria (None) /hpf Urine Mucus (None) /hpf Crossmatch See Detail 12/30/17 12/30/17 12/30/17 Range/Units 12:16 17:34 20:05 WBC (3.8-10.6) k/uL RBC (3.80-5.40) m/uL Hgb (11.4-16.0) gm/dL Hct (34.0-46.0) % MCHC (31.0-37.0) g/dL RDW (11.5-15.5) % Plt Count (150-450) k/uL Neutrophils # (Manual) (1.3-7.7) k/uL Monocytes # (Manual) (0-1.0) k/uL Metamyelocytes # (Man) (0) k/uL Myelocytes # (Manual) (0) k/uL Promyelocytes # (Man) (0) k/uL Blast Cells # (Man) (0) k/uL Nucleated RBCs (0-0) /100 WBC PT (9.0-12.0) sec INR (<1.2) APTT (22.0-30.0) sec Chloride (98-107) mmol/L Carbon Dioxide (22-30) mmol/L BUN (7-17) mg/dL Creatinine (0.52-1.04) mg/dL Glucose (74-99) mg/dL POC Glucose (mg/dL) 143 H (75-99) mg/dL Hemoglobin A1c 6.4 H (4.0-6.0) % Plasma Lactic Acid Eddie (0.7-2.0) mmol/L Calcium (8.4-10.2) mg/dL Phosphorus (2.5-4.5) mg/dL Total Creatine Kinase (30-135) U/L Total Protein (6.3-8.2) g/dL Albumin (3.5-5.0) g/dL Urine Appearance Turbid H (Clear) Urine Protein 1+ H (Negative) Urine Ketones 1+ H (Negative) Urine Blood Moderate H (Negative) Ur Leukocyte Esterase Large H (Negative) Urine RBC 35 H (0-5) /hpf Urine WBC >182 H (0-5) /hpf Urine WBC Clumps Many H (None) /hpf Urine Bacteria Moderate H (None) /hpf Urine Mucus Rare H (None) /hpf Crossmatch 12/31/17 12/31/17 12/31/17 Range/Units 06:54 06:54 07:02 WBC 17.1 H (3.8-10.6) k/uL RBC 2.73 L (3.80-5.40) m/uL Hgb 8.0 L D (11.4-16.0) gm/dL Hct 25.9 L (34.0-46.0) % MCHC 30.9 L (31.0-37.0) g/dL RDW 18.1 H (11.5-15.5) % Plt Count 29 L* (150-450) k/uL Neutrophils # (Manual) 10.43 H (1.3-7.7) k/uL Monocytes # (Manual) 1.20 H (0-1.0) k/uL Metamyelocytes # (Man) 0.86 H (0) k/uL Myelocytes # (Manual) 2.22 H (0) k/uL Promyelocytes # (Man) 0.51 H (0) k/uL Blast Cells # (Man) 0.17 H (0) k/uL Nucleated RBCs 4 H (0-0) /100 WBC PT (9.0-12.0) sec INR (<1.2) APTT (22.0-30.0) sec Chloride 120 H* (98-107) mmol/L Carbon Dioxide 13 L (22-30) mmol/L BUN 54 H (7-17) mg/dL Creatinine 1.39 H (0.52-1.04) mg/dL Glucose (74-99) mg/dL POC Glucose (mg/dL) 102 H (75-99) mg/dL Hemoglobin A1c (4.0-6.0) % Plasma Lactic Acid Eddie (0.7-2.0) mmol/L Calcium 7.0 L (8.4-10.2) mg/dL Phosphorus (2.5-4.5) mg/dL Total Creatine Kinase (30-135) U/L Total Protein (6.3-8.2) g/dL Albumin (3.5-5.0) g/dL Urine Appearance (Clear) Urine Protein (Negative) Urine Ketones (Negative) Urine Blood (Negative) Ur Leukocyte Esterase (Negative) Urine RBC (0-5) /hpf Urine WBC (0-5) /hpf Urine WBC Clumps (None) /hpf Urine Bacteria (None) /hpf Urine Mucus (None) /hpf Crossmatch Microbiology - Last 24 Hours (Table) 12/30/17 12:16 Urine Culture - Preliminary Urine,Voided CT scan - abdomen: report reviewed CT scan - chest: report reviewed CT scan - pelvis: report reviewed Assessment and Plan (1) Hx of cancer of endometrium Narrative/Plan: Follows with Dr. Hernandez out of [facility]. Concern is CT scan revealing new finding of colovaginal fistula and concern for sigmoid mass (secondary primary versus metastatic recurrent cancer), biopsy is recommended, Surgical consult and plan pending. Obtain a CT scan of the chest for complete restaging. Current Visit: Yes Status: Acute Code(s): Z85.42 - PERSONAL HISTORY OF MALIGNANT NEOPLASM OF OTH PRT UTERUS SNOMED Code(s): 617881027 (2) Thrombocytopenia Narrative/Plan: Platlets are 29,000 today, monitor closely for any signs or symptoms of bleeding. Possible causes may be acute infection superimposed on already suppressed marrow or progression of MDS, Dr. Mario suspects the former. Case discussed with Surgical INTELLECTUAL PROPERTY LAWYER. Recommend platelet transfusion during procedures. Hold plavix and heparin at this time until platelet recovery, SCDs for DVT prophylaxis. CBC daily, transfuse platelets if bleeding or platelets less then 10,000. 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 Baseline hemoglobin appears to range 7.5-8.5, continue to monitor, conservative transfusions less than 7. 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
[2017-12-31] MEDS ORDERED: CRANBERRY PO SCH (16:10)
[2017-12-31 16:54] LABS: Glucose,Whole Blood 98 mg/dL (75-99)
--- NOTE | 2017-12-31 18:42 | PN ---
PROGRESS NOTE DATE OF SERVICE: 12/31/2017 This 82-year-old woman who was admitted with generalized weakness and tiredness, possibly UTI with sepsis, was also found to have a colovaginal fistula and possibly a colovesical fistula. Sigmoid mass was also suspected. Splenomegaly was also suspected on the CT scan. The patient continues to be confused. Past medical history reviewed. Review of systems could not be taken at length because of the patient's change in mental status. CURRENT MEDICATIONS: 1. [place] 5 mg q.6 p.r.n. 2. Lipitor 20 mg p.o. at bedtime. 3. Marinol 2.5 mg t.i.d. 4. Omnipaque. 5. Glucophage 500 mg. 6. Lopressor 12.5 mg b.i.d. 7. Nitrostat 0.4 sublingually p.r.n. 8. Cranberry. 9. Zosyn 3.375 IV q.8. 10.Zoloft 200 mg p.o. daily. PHYSICAL EXAMINATION: Patient is conscious, confused. Pulse is 91, blood pressure 99/56, respiration 16, temperature 97.8, pulse ox 96% on room air. HEENT: Conjunctivae normal. Oral mucosa moist. NECK: No jugular venous distention. No carotid bruit. No lymph node enlargement. CARDIOVASCULAR SYSTEM: S1, S2 muffled. No S3. No S4. RESPIRATORY SYSTEM: Breath sounds diminished at the bases. A few scattered rhonchi. No crackles. ABDOMEN: Soft. No guarding. No rigidity. No mass palpable. LEGS: No edema. No swelling. NERVOUS SYSTEM: Higher functions as mentioned earlier. LABS: WBC 17.1, hemoglobin 8, platelets 29, chloride 120 and creatinine 1.39. ASSESSMENT: 1. Acute urinary tract infection with sepsis and generalized weakness and tiredness. 2. 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 3. Increased white count. 4. Anemia, acute myelodysplastic syndrome, acute exacerbation. 5. Thrombocytopenia secondary to myelodysplastic syndrome. 6. Mild coagulopathy. 7. Increased creatinine with chronic kidney disease, stage III. 8. History of coronary artery disease, stent. 9. History of diabetes mellitus, type 2. 10.Hypertension. 11.History of recent influenza A and B. 12.Gait dysfunction. 13.History of cholecystectomy. 14.History of hysterectomy. 15.History of degenerative joint disease. RECOMMENDATIONS AND DISCUSSION: I recommend to continue current medication, continue with the monitoring, symptomatic treatment. We will monitor the patient closely, continue with the current medications. Will continue with broad-spectrum IV antibiotics. I would also recommend continued consultation with Surgery and also Dr. Mario for thrombocytopenia and anemia. Platelet transfusion in case of colonoscopy or surgery. Prognosis guarded. Further recommendations to follow. Discussed with caregiver. GELA / DLN: [id number] /
[2017-12-31 20:14] LABS: Glucose,Whole Blood 127 mg/dL (75-99)
[2017-12-31] MEDS: HYDROcodone/APAP 5-325MG 1 EACH TAB PO PRN (21:08)
--- NOTE | 2017-12-31 23:30 | CONS ---
CONSULTATION DATE OF SERVICE: 12/31/2017 REASON FOR CONSULTATION: Diverticulitis with colovaginal fistula. HISTORY OF PRESENT ILLNESS: The patient is an 82-year-old female who was brought into the ER at [facility] on 12/30/2017 with chief complaints of nausea, vomiting and abdominal pain. Apparently her symptoms had been going on for a week or so prior to presentation to the hospital. The pain has been in the lower abdominal area, described at times sharp, almost 7 to 8/10, and she presented to hospital. The patient did have this associated nausea and vomiting with it, but denies having diarrhea or any constipation. Subsequently noticed to have some stool coming through her vaginal area. The patient subsequently has been evaluated by the ER physician. The patient did have a CT abdominal pelvis that has been suspicious for a colorectal and colovaginal fistula suspected possible to be neoplastic and splenomegaly. The patient did have a low-grade fever of 100 and she has been tachycardic with heart rate in the 90s with a white count elevated at 23,000. The patient was started on Zosyn in the hospital and ID was consulted for further recommendation regarding antibiotic therapy. The patient apparently did have a colonoscopy about five years ago and it was reported to be negative for any abnormality. REVIEW OF SYSTEMS: CONSTITUTIONAL: Positive for weakness and low-grade fever. EYES: No complaint. ENT: No complaint. RESPIRATORY: CARDIOVASCULAR: No complaint. GENITOURINARY: As per HPI. GASTROINTESTINAL: As per HPI. MUSCULOSKELETAL: No complaint. INTEGUMENTARY: No complaint. PSYCHOLOGICAL: No complaint. ENDOCRINE: No complaint. NEUROLOGICAL: No complaint. PAST MEDICAL HISTORY: Significant for coronary artery disease, diabetes mellitus, hypertension, uterine cancer, influenza, coronary artery disease. PAST SURGICAL HISTORY: Appendectomy, , hysterectomy, hysterectomy, PTCA with stent placement, left knee arthroplasty, colonoscopy, bilateral cataract removal with lens implant. SOCIAL HISTORY: No history of smoking, drinking, or drug use. FAMILY HISTORY: Mother and father with history of CVA and TIA. ALLERGIES: No known drug allergies. MEDICATIONS: The patient is currently on: 1. [place]. 2. Lipitor. 3. Marinol. 4. NovoLog. 5. Glucophage. 6. Lopressor. 7. . 8. Zoloft. EXAMINATION: Blood pressure is 114/57 with a pulse of 75, temperature 97.8. She is 98% on room air. General description is an elderly female, lying in bed in no distress. No tachypnea or accessory muscle of respiration use. HEENT: Shows pallor, no scleral icterus. Oral mucosa membranes is moist. No pharyngeal erythema or thrush. NECK: Trachea is central. No thyromegaly. LUNGS: Unlabored breathing, decreased breath sounds in the bases. No wheeze or crackle. HEART: S1, S2. Regular rate and rhythm. ABDOMEN: Soft, minimal tenderness in the lower quadrant area. No guarding. No organomegaly. EXTREMITIES: No edema of the feet. SKIN EXAMINATION: No rash or mass palpable. Neurologically, the patient is awake, alert, oriented x2. Mood and affect normal. LABS: Hemoglobin 8.1 17.1 with a BUN of 54, creatinine is 1.39. Blood culture obtained currently pending. DIAGNOSTIC IMPRESSION AND PLAN: The patient presented to the hospital with abdominal pain, nausea and vomiting, now with stool coming through her vagina. The patient did have a low-grade fever. Did have elevated white count meeting criteria for SIRS/sepsis. Source is likely acute diverticulitis complicated with colovaginal and colorectal fistula in a patient who did have apparently have a colonoscopy about 5 years that was negative that will make it to be very unlikely to be a malignant tumor causing this colovaginal and colorectal fistula. The likely organism gram-negative both aerobic and anaerobes. PLAN: 1. We recommend obtaining culture both aerobic and anaerobic at the time of surgical correction of the fistula, more likely she will need a diverting colostomy. 2. The patient will be kept on Zosyn at 3.75 g IV piggyback q.8 hours. 3. Gentle IV fluid. 4. Depending upon the clinical response, as well as cultures we will adjust her medications further if needed. Thank you for this consultation. We will follow this patient along with you. MMODL / IJN: [id number] /
[2018-01-01] MEDS: PIPERACILLIN-TAZOBACTAM 3.375 GM in DEXTROSE/WATER 1 50ML.BAG IVPB SCH ×2 (05:27→16:30)
[2018-01-01] MEDS: HYDROcodone/APAP 5-325MG 1 EACH TAB PO PRN ×2 (05:31→14:41)
[2018-01-01 07:10] LABS: Glucose,Whole Blood 162 mg/dL (75-99)
[2018-01-01] MEDS ORDERED: metFORMIN 500 MG TAB PO SCH (07:30)
[2018-01-01] MEDS: INSULIN ASPART 100 UNIT/ML 1 ML 10 ML VIAL SQ SCH ×2 (08:28→12:59)
[2018-01-01] MEDS: DRONABINOL 2.5 MG CAP PO SCH ×2 (08:28→12:59)
[2018-01-01 08:29] LABS: Anisocytosis Slight; HCT 26.1 % (34.0-46.0); HGB 8.1 gm/dL (11.4-16.0); Hypochromasia Moderate; MCH 29.6 pg (25.0-35.0); MCHC 30.9 g/dL (31.0-37.0); MCV 95.8 fL (80.0-100.0); Macrocytosis Slight; Mean Platelet Volume 13.3; Poikilocytosis Moderate; RBC 2.73 m/uL (3.80-5.40); RDW 18.1 % (11.5-15.5); WBC 16.1 k/uL (3.8-10.6)
[2018-01-01] MEDS: METOPROLOL TARTRATE 12.5 MG TAB PO SCH (08:29)
[2018-01-01] MEDS: ATORVASTATIN 20 MG TAB PO SCH (08:29)
[2018-01-01] MEDS: SERTRALINE 100 MG TAB PO SCH (08:29)
[2018-01-01 08:30] LABS: Platelet Count 26 k/uL (150-450)
[2018-01-01 08:43] LABS: Potassium 4.6 mmol/L (3.5-5.1)
[2018-01-01 08:44] LABS: Calcium 7.4 mg/dL (8.4-10.2)
[2018-01-01 09:25] LABS: Band Neutrophils % 1 %; Blast Cells # (M) 0.81 k/uL (0); Lymphocytes # (M) 3.06 k/uL (1.0-4.8); Metamyelocytes # (M) 0.48 k/uL (0); Metamyelocytes % 3 %; Monocytes # (M) 2.25 k/uL (0-1.0); Myelocytes # (M) 1.61 k/uL (0); Myelocytes % 10 %; Neutrophils % (M) 51 %; Nucleated Red Blood Cells 0 /100 WBC (0-0); Promyelocytes # (M) 0.16 k/uL (0); Promyelocytes % 1 %; Total Cells Counted 200
[2018-01-01 09:26] LABS: Polychromasia Present
[2018-01-01] MEDS ORDERED: DEXTROSE 5% IN WATER 1,000 ML IV SCH (11:15)
[2018-01-01 12:12] LABS: Glucose,Whole Blood 144 mg/dL (75-99)
--- NOTE | 2018-01-01 13:40 | P.PN ---
Subjective Progress Note Date: 01/01/18 82-year-old female seen and examined with Dr. Rincon the bedside this morning. Dr. Rincon did discuss the plan with Dr. mario surgical eval was requested after nursing reported patient was having stool from the vaginal area. Patient has a history of myelodysplastic syndrome . Patient has been followed by an oncologist at [facility]. Patient has a history of endometrial cancer diagnosed 5 years ago treated with radiation. Last colonoscopy per daughter is 4-5 years ago. daughter indicated to Dr. Rincon that she is requesting the patient be transferred to [facility] for treatment. Indicates that she does not want Dr. Mario involved in her mother's care The daughter indicates that her oncologist at [facility] has been taking care of her mother if there is to be any surgical procedure or any colonoscopy she wants the care given at [facility]. Dr. Rincon did discuss with the daughter on the phone the risk of doing a colonoscopy even though platelets would be given could worsen the fistula. Objective - Vital Signs Vital signs: Vital Signs Temp 97.7 F 01/01/18 07:00 Pulse 91 01/01/18 07:00 Resp 16 01/01/18 07:00 BP 135/65 01/01/18 07:00 Pulse Ox 96 01/01/18 07:00 Intake & Output 12/31/17 01/01/18 01/01/18 18:59 06:59 18:59 Intake Total 200 Output Total 4 Balance 200 -4 Weight 52.163 kg Intake: Oral 200 Output: Stool 4 Other: Voiding Method Diaper Diaper Diaper # Voids 4 2 # Bowel Movements 2 - Exam Physical exam Frail 82-year-old female thin arousable to verbal stimuli and oriented to self and place Chest MediPort in the right anterior chest wall Lungs diminished at the bases otherwise adequate air movement Heart S1-S2 audible regular Abdomen soft nondistended nontender no nausea no vomiting nursing reports continues to have episodes of stooling from the vagina Extremities no edema noted - Labs CBC & Chem 7: 01/01/18 07:35 01/01/18 07:35 Labs: Abnormal Lab Results - Last 24 Hours (Table) 12/30/17 12/31/17 01/01/18 Range/Units 11:05 20:10 06:48 WBC (3.8-10.6) k/uL RBC (3.80-5.40) m/uL Hgb (11.4-16.0) gm/dL Hct (34.0-46.0) % MCHC (31.0-37.0) g/dL RDW (11.5-15.5) % Plt Count (150-450) k/uL Neutrophils # (Manual) (1.3-7.7) k/uL Monocytes # (Manual) (0-1.0) k/uL Metamyelocytes # (Man) (0) k/uL Myelocytes # (Manual) (0) k/uL Promyelocytes # (Man) (0) k/uL Blast Cells # (Man) (0) k/uL Pathologist Review See comment A Sodium (137-145) mmol/L Chloride (98-107) mmol/L Carbon Dioxide (22-30) mmol/L BUN (7-17) mg/dL Creatinine (0.52-1.04) mg/dL Glucose (74-99) mg/dL POC Glucose (mg/dL) 127 H 162 H (75-99) mg/dL Calcium (8.4-10.2) mg/dL 01/01/18 01/01/18 01/01/18 Range/Units 07:35 07:35 12:10 WBC 16.1 H (3.8-10.6) k/uL RBC 2.73 L (3.80-5.40) m/uL Hgb 8.1 L (11.4-16.0) gm/dL Hct 26.1 L (34.0-46.0) % MCHC 30.9 L (31.0-37.0) g/dL RDW 18.1 H (11.5-15.5) % Plt Count 26 L* (150-450) k/uL Neutrophils # (Manual) 8.30 H (1.3-7.7) k/uL Monocytes # (Manual) 2.25 H (0-1.0) k/uL Metamyelocytes # (Man) 0.48 H (0) k/uL Myelocytes # (Manual) 1.61 H (0) k/uL Promyelocytes # (Man) 0.16 H (0) k/uL Blast Cells # (Man) 0.81 H (0) k/uL Pathologist Review Sodium 149 H (137-145) mmol/L Chloride 123 H* (98-107) mmol/L Carbon Dioxide 14 L (22-30) mmol/L BUN 49 H (7-17) mg/dL Creatinine 1.26 H (0.52-1.04) mg/dL Glucose 137 H (74-99) mg/dL POC Glucose (mg/dL) 144 H (75-99) mg/dL Calcium 7.4 L (8.4-10.2) mg/dL Microbiology - Last 24 Hours (Table) 12/30/17 17:34 Blood Culture - Preliminary Blood No Growth after 24 hours 12/30/17 12:16 Urine Culture - Final Urine,Voided Assessment and Plan Assessment: Impression Present on admission noted stooling from the vagina 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 CAT scan abdomen and pelvis report reviewed indicate 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 History of endometrial cancer diagnosed 5 years prior received adjuvant radiation no chemotherapy Known coronary artery disease with drug-eluting stent to the RCA 2015 on aspirin Plavix History of anemia acute myelodysplastic History of myelodysplastic syndrome History recurrent UTIs Thrombocytopenia Present on admission leukocytosis Type 2 diabetes hemoglobin A1c 6.4 Hypocalcemia calcium 7 CAT scan of the thorax without IV contrast done December 31 show new area abnormal soft tissue right lower lobe cannot exclude pneumonia Underweight BMI 19 Plan Transfer patient to [facility] prior level of care per family's request Continue to hold aspirin Plavix Monitor platelet count note dictated for Dr. Rincon The above impression and plan of care have been discussed and directed by signing physician. Elizabeth Jc nurse practitioner acting as scribe for signing physician.
[2018-01-01 16:19] VITALS: BP 117/67; PULSE 86; TEMP 97.9
--- NOTE | 2018-01-01 21:13 | PN ---
PROGRESS NOTE DATE OF SERVICE: 01/01/2018 This 82-year-old woman who was admitted with generalized weakness and tiredness and had acute UTI also. 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 The patient, according to the family,talking with a surgeon in [facility] accept the patient, waiting for a bed at this time. No chest pain. No palpitations. On exam, pulse is 86, blood pressure 178/69, respiration 16, temperature 97.8, pulse ox 96% on room air. HEENT: Conjunctivae normal. NECK: No jugular venous distention. CARDIOVASCULAR SYSTEM: S1, S2 muffled. RESPIRATORY SYSTEM: Breath sounds diminished at the bases. A few rhonchi. No crackles. ABDOMEN: Soft, non-tender. No mass palpable. LEGS: No edema. No swelling. NERVOUS SYSTEM: No focal deficit. LABS: WBC 16.2, hemoglobin 8.1, sodium 149, chloride 123. ASSESSMENT: 1. Acute urinary tract infection with sepsis, generalized weakness, tiredness, present on admission. 2. 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 3. Increased white count. 4. Anemia; acute on chronic myelodysplastic syndrome. 5. Thrombocytopenia secondary to MDS. 6. Mild coagulopathy. 7. Increased creatinine with chronic kidney disease, stage III. 8. History of coronary artery disease, stent. 9. History of diabetes mellitus, type 2. 10.Hypertension. 11.History of recent influenza A and B. 12.Gait dysfunction. 13.History of cholecystectomy. 14.History of hysterectomy. 15.History of degenerative joint disease. RECOMMENDATIONS AND DISCUSSION: I recommend to continue current medication, continue symptomatic treatment. Otherwise at this time I would recommend following the patient closely. Continue with IV antibiotics. Infectious Disease has been consulted. I would also recommend following closely with Surgery regarding a possible transfer at this time. MMODL / IJN: [id number] / MTDD
--- NOTE | 2018-01-01 22:22 | PN ---
PROGRESS NOTE DATE OF SERVICE: 01/01/2018. REASON FOR FOLLOWUP: Possible diverticulitis with a colovesical fistula. INTERVAL HISTORY: The patient is seen on rounds earlier this morning. The patient has been afebrile. She has been breathing comfortably, did mention that the abdominal pain is currently controlled with the pain medication. No nausea, vomiting, did not have any bowel movement. No chest pain, shortness of breath or cough. EXAMINATION: Blood pressure is 113/67 with a pulse of 86, temperature 97.9. She is 96% on room air. General description is an elderly female lying in bed in no distress. RESPIRATORY SYSTEM: Unlabored breathing. Clear to auscultation anteriorly. HEART: S1, S2. Regular rate and rhythm. ABDOMEN: Soft. Mildly tender in lower quadrant with no guarding or rigidity. LABS: Hemoglobin 8.1, white count down to 16.1. BUN of 49, creatinine is 1.26. DIAGNOSTIC IMPRESSION AND PLAN: Patient likely diverticulitis complicated with colovesical fistula for which the patient currently is maintained on Zosyn and will be continued. White count did show a downward trend. Per Surgery note, the patient is being transferred to the [facility] to be evaluated by there. She will continue with Zosyn until the patient evaluated by the Infectious Disease Service at that facility. Continue supportive care. MMODL / IJN: [id number] /
--- NOTE | 2018-01-01 22:55 | DS ---
DISCHARGE SUMMARY FINAL DIAGNOSIS: 1. Acute urinary tract infection with sepsis, generalized weakness and tiredness, present on admission. 2. 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 3. Increased WBC. 4. Anemia, acute myelodysplastic syndrome acute exacerbation. 5. History of thrombocytopenia secondary to MDS. 6. Mild coagulopathy. 7. Increased creatinine with chronic kidney stage 3. 8. History of coronary artery disease/stent. 9. History of diabetes type 2. DISCHARGE DISPOSITION: Patient is being discharged in stable condition with guarded prognosis. The patient is transferred to [facility] for further evaluation and treatment. HISTORY OF PRESENT ILLNESS: This 82-year-old woman with a past history of multiple medical problems was admitted with colovesical and colovaginal fistula. The patient was seen by surgery and as per family request, the patient was transferred to [facility] General surgery department. Please refer to the surgical dictation for further information. The prognosis remained guarded throughout hospitalization. MMODL / IJN: [id number] /
== END 2018-01-01 17:45 | disposition short-term general hospital (02) | DRG 872 ==
LOC: EC 10:50 → 5MS5E 12:36
PROVIDERS: ADMIT Hospitalist; ATTEND Hospitalist
DX: A41.9 Sepsis, unspecified organism (principal); K57.92 Diverticulitis of intestine, part unspecified, without perforation or abscess without bleeding; N32.1 Vesicointestinal fistula; N82.3 Fistula of vagina to large intestine; N39.0 Urinary tract infection, site not specified; D69.59 Other secondary thrombocytopenia; E11.22 Type 2 diabetes mellitus with diabetic chronic kidney disease; I27.20 Pulmonary hypertension, unspecified; E83.51 Hypocalcemia; N18.3 Chronic kidney disease, stage 3 (moderate); D63.1 Anemia in chronic kidney disease; I12.9 Hypertensive chronic kidney disease with stage 1 through stage 4 chronic kidney disease, or unspecified chronic kidney disease; I25.10 Atherosclerotic heart disease of native coronary artery without angina pectoris; M85.80 Other specified disorders of bone density and structure, unspecified site; D46.9 Myelodysplastic syndrome, unspecified; M19.90 Unspecified osteoarthritis, unspecified site; R29.6 Repeated falls; R16.1 Splenomegaly, not elsewhere classified; R26.9 Unspecified abnormalities of gait and mobility; R63.6 Underweight; H91.90 Unspecified hearing loss, unspecified ear; H54.7 Unspecified visual loss; R79.1 Abnormal coagulation profile; K63.89 Other specified diseases of intestine; Z68.1 Body mass index [BMI] 19.9 or less, adult; Z79.02 Long term (current) use of antithrombotics/antiplatelets; Z79.84 Long term (current) use of oral hypoglycemic drugs; Z79.899 Other long term (current) drug therapy; Z96.652 Presence of left artificial knee joint; Z95.5 Presence of coronary angioplasty implant and graft; Z90.710 Acquired absence of both cervix and uterus; Z90.49 Acquired absence of other specified parts of digestive tract; Z87.891 Personal history of nicotine dependence; Z87.440 Personal history of urinary (tract) infections; Z85.42 Personal history of malignant neoplasm of other parts of uterus
CPT/HCPCS: 36415; 71046; 71250; 74176; 80048; 80053; 81001; 82550; 82553; 83036; 83605; 83735; 84100; 84484; 85025; 85610; 85730; 86304; 86850; 86900; 86901; 86920; 87040; 87045; 87046; 87086; 89055; 93005; 96361; 96374; 96375; 99285